=== PATIENT | female | born 1970 | race Hispanic/Latino ===

== ENCOUNTER 2017-02-21 12:03 | Inpatient (IN) | payer MEDICAID, OTHER ==
--- NOTE | 2017-02-21 12:52 | C.PDOC ---
History Of Present Illness 46 year old female presents to the ED via ambulance for psychiatric evaluation after she verbalized suicidal ideation with plan earlier today. Patient has history of methadone abuse and is currently getting help at [facility] rehab [facility]. Patient states her last use of Methadone was on on 02/02. Patient reports withdrawal symptoms such as a "crawling" sensation all over her skin. Patient notes she has been depressed and has not been eating/drinking properly for the past 7 days. She reports that she will hang herself with bed sheets if these symptoms continue. She denies homicidal ideation or any other substance abuse at this time. Time Seen by Provider: 02/21/17 12:36 Chief Complaint (Nursing): Psychiatric Evaluation History Per: Patient History/Exam Limitations: no limitations Onset/Duration Of Symptoms: Hrs, Days Current Symptoms Are (Timing): Still Present Suicide/Self Injury Attempted (Context): None Associated Symptoms: Depression, Suicidal Thoughts, Suicidal Plan Involuntary Hold By: None Recent travel outside of the [place]: No Additional History Per: Patient Past Medical History Reviewed: Historical Data, Nursing Documentation, Vital Signs Vital Signs: Last Vital Signs Temp 98.6 F 02/21/17 12:07 Pulse 92 H 02/21/17 12:07 Resp 16 02/21/17 12:07 BP 109/83 02/21/17 12:07 Pulse Ox 98 02/21/17 13:40 - Medical History PMH: Anxiety, Depression, HTN Surgical History: No Surg Hx Family History: States: Unknown Family Hx - Social History Hx Alcohol Use: No Hx Substance Use: No - Immunization History Hx Tetanus Toxoid Vaccination: No Hx Influenza Vaccination: No Hx Pneumococcal Vaccination: No Review Of Systems Psych: Positive for: Depression, Suicidal ideation (with plan ), Withdrawal Physical Exam - Physical Exam Appears: Non-toxic, No Acute Distress, Other (anxious ) Skin: Normal Color, Warm, Dry Head: Atraumatic, Normacephalic Eye(s): bilateral: Normal Inspection Oral Mucosa: Moist Neck: Supple Chest: Symmetrical, No Deformity, No Tenderness Cardiovascular: Rhythm Regular, No Murmur Respiratory: Normal Breath Sounds Extremity: Normal ROM, Capillary Refill (less than 2 seconds ) Neurological/Psych: Oriented x3, Normal Speech, Normal Cognition, Other (no active psychosis ) Gait: Steady ED Course And Treatment - Laboratory Results Result Diagrams: 02/21/17 13:02 02/21/17 13:02 O2 Sat by Pulse Oximetry: 98 (on RA) Pulse Ox Interpretation: Normal Progress Note: Bloodwork and urinalysis ordered and reviewed. Catapres PO and Xanax PO administered. Progress - Re-Evaluation Re-evaluation Note: 02/21/17 13:39 MED CLEAR FOR PSYCH EVAL. ASYMPT FOR UTI, RECOMMEND MED CONSULT PRN FOR EVAL ABN UA 02/21/17 13:40 CRISIS SANDIP NOTIFIED - Data Reviewed Data Reviewed: Lab, Old records Disposition Discussed With Dr.: Lupillo Bush Counseled Patient/Family Regarding: Studies Performed, Diagnosis - Disposition Disposition: HOSPITALIZED Disposition Time: 14:42 Condition: STABLE Forms: [employer] ([place]) - Clinical Impression Clinical Impression: Depression, major - Scribe Statement The provider has reviewed the documentation as recorded by the Scribe (Bekah Yo) Provider Attestation: All medical record entries made by the Scribe were at my direction and personally dictated by me. I have reviewed the chart and agree that the record accurately reflects my personal performance of the history, physical exam, medical decision making, and the department course for this patient. I have also personally directed, reviewed, and agree with the discharge instructions and disposition. Decision To Admit - Pt Status Changed To: Hospital Disposition Of: Inpatient - Admit Certification Admit to Inpatient:: After my assessment, the patient will require hospitalization for at least two midnights. This is because of the severity of symptoms shown, intensity of services needed, and/or the medical risk in this patient being treated as an outpatient. - InPatient: Physician Admission Certification: I certify that this patient requires 2 or more midnights of care for the following reason:: SEE NOTE - . Bed Request Type: Psychiatry Admitting Physician: Lupillo Bush Patient Diagnosis: Depression, major
[2017-02-21 13:11] LABS: BASO % 0.7 % (0.0-2.0); EOS # 0.1 K/uL (0.0-0.7); EOS % 1.4 % (0.0-4.0); HEMATOCRIT 40.2 % (34.0-47.0); LYMPH # 1.8 K/uL (1.0-4.3); LYMPH % 35.4 % (20.0-40.0); MEAN CELL VOLUME 87.7 fL (81.0-99.0); MEAN CORPUSCULAR HEMOGLOBIN 29.7 pg (27.0-31.0); MEAN CORPUSCULAR HGB CONC 33.8 g/dL (33.0-37.0); MONO # 0.4 K/uL (0.0-0.8); MONO % 7.7 % (0.0-10.0); NRBC % 0.1 % (0.0-2.0); RED CELL DISTRIBUTION WIDTH 12.8 % (11.5-14.5); WHITE BLOOD COUNT 5.2 K/uL (4.8-10.8)
[2017-02-21 13:13] LABS: CHLORIDE 105 mmol/L (98-107); SODIUM 138 mmol/L (132-148)
[2017-02-21 13:14] LABS: POTASSIUM 3.8 mmol/L (3.6-5.2)
[2017-02-21 13:16] LABS: ALB/GLOB RATIO 1.2 (1.0-2.1); ALKALINE PHOSPHATASE 59 U/L (38-126); ALT/SGPT 42 U/L (9-52); AST/SGOT 22 U/L (14-36); BILIRUBIN,TOTAL 0.5 mg/dL (0.2-1.3); BLOOD UREA NITROGEN 25 mg/dL (7-17); CARBON DIOXIDE 17 mmol/L (22-30); GFR AFRICAN-AMERICAN > 60; GLUCOSE,RANDOM 94 mg/dL (65-105); TOTAL PROTEIN 8.5 g/dL (6.3-8.3)
[2017-02-21 13:17] LABS: ALCOHOL SERUM < 10 mg/dl (0-10); CALCIUM 9.8 mg/dl (8.6-10.4)
[2017-02-21 13:29] LABS: RBC URINE 2 /hpf (0-3); URINE BACTERIA MOD (<OCC); URINE BILIRUBIN NEGATIVE (NEGATIVE); URINE BLOOD 1+ (NEGATIVE); URINE COLOR Yellow (YELLOW); URINE GLUCOSE (UA) NORMAL (Normal); URINE HYALINE CAST 0-2 /lpf (0-2); URINE KETONE TRACE mg/dL (NEGATIVE); URINE LEUKOCYTE ESTERASE 2+ Leu/uL (Negative); URINE PROTEIN 1+ mg/dL (NEGATIVE); URINE UROBILINOGEN NORMAL mg/dL (0.2-1.0); WBC URINE 30 /hpf (0-5)
--- NOTE | 2017-02-21 17:42 | PCM.BM ---
<Danielle Davenport - Last Filed: 02/21/17 17:41> Treatment Plan Problems - Problems identified on initial assessmt Depression Date Initiated: 02/21/17 Time Initiated: 17:41 Assessment reference: NA Status: Active Treatment assets and liabiliti Patient Assests: adapts well, cooperative, motivated, negotiates basic needs Patient Liabilities: substance abuse - Milieu Protocol Maintain good personal hygiene: daily Encourage regular showers, daily Remind patient to perform daily oral care Conduct patient checks and document Observation sheet: Q15 minutes Maintain personal safety: every shift Educate patient to report safety concerns to staff, every shift Monitor environment for contraband/sharps Medication safety: Monitor for expected outcome, potential side effects: every shift, Assess barriers to learning: every shift, Assess readiness for medication education: every shift <Holli Johns - Last Filed: 02/22/17 11:45> Family Contact Family involvement: Famliy/SO not involved - Outside Agency Agency 1 Care involvment: Following patient during stay, Information-sharing Agency contact name: [facility] Agency contact number: - Goals for Treatment Patient goals for treatment: "I want to go back to [facility]." Discharge/Continuing Care - Education Needs Education Needs: Patient Medication, Patient Coping Skills - Discharge Discharge Criteria: Tolerates medication w/o severe side effects, Reduction of target symptoms Discharge to:: Substance Abuse Rehab - Treatment Team Participation Discussed with Family/SO: No Was Patient/Family/SO present at Treatment Team Meeting: Yes <Lupillo Bush - Last Filed: 02/22/17 20:06> - Diagnosis (1) Major depressive disorder, recurrent severe without psychotic features Status: Acute Interventions: Assess/at just medications daily and/or as needed See patient on and individual [id number] per week to assess status of hallucinations and delusions Discussed risks, benefits, side effects and alternatives of medications. 02/22/17 20:05 (2) Long-term current use of methadone for opiate dependence Status: Acute Interventions: Assess 7x/week regarding severity of withdrawals. Educated regarding risks, benefits, side effects and alternatives of medications. Use motivational interviewing for abstinence. Use CBT for relapse prevention Medication management for withdrawal symptoms Encouraged medications assisted treatment 02/22/17 20:04
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
--- NOTE | 2017-02-23 11:42 | PCM.PYCHPN ---
Psychiatric Progress Note - Psychiatric Progress Note Patient seen today, length of contact: 15 min Patient Chief Complaint: "I need seroquel" Problems Identified/Issues Discussed: The pt is seen, chart reviewed, case discussed with staff. The pt is compliant with medications and reports no side-effects. After care discussed, will return to [facility] support and psychoeducation given. She is insisting on getting her seroquel 400 g which helped her depression and insomnia She also says she is till very depressed Wellbutrin XL added Seroquel increased Risks discussed Medication Change: Yes (see hpi) Medical Record Reviewed: Yes Mental Status Examination - Cognitive Function Orientation: Person, Place, Situation, Time Memory: Intact Attention: WNL Concentration: Poor Association: WNL Fund of Knowledge: WNL - Mood Mood: Depressed - Affect Affect: Constricted, Depressed - Formal Thought Process Formal Thought Process: No Impairment - Suicidal Ideation Suicidal Ideation: No - Homicidal Ideation Homicidal Ideation: No Goal/Treatment Plan - Goal/Treatment Plan Need for Continued Stay: Discharge may exacerbated symptoms, Severe functional impairment Progress Toward Problem(s) and Goals/Treatment Plan: Continue medications Support and psychoeducation daily Attend groups and activities daily After care planning by KYLER to [facility] Estimated Date of D/C: 03/01/17
[2017-02-23] MEDS: buPROPion 150 mg/24 Hours XL Tab PO SCH (14:27)
[2017-02-24] MEDS: buPROPion 150 mg/24 Hours XL Tab PO SCH (09:27)
--- NOTE | 2017-02-24 12:56 | PCM.PYCHPN ---
Psychiatric Progress Note - Psychiatric Progress Note Patient seen today, length of contact: 16 min Patient Chief Complaint: "I am very anxious, real bad" Problems Identified/Issues Discussed: The pt is seen, chart reviewed, case discussed with staff. Support given, CBT and HI used briefly No new symptoms reported, improving slowly and needs more time No SEs from medications, risks discussed. After care discussed - she now says she doesn't want to go to [facility] "I don't like it there" Meds adjusted b/c of her anxiety Medication Change: Yes (inderal) Medical Record Reviewed: Yes Mental Status Examination - Cognitive Function Orientation: Person, Place, Situation, Time Memory: Intact Attention: WNL Concentration: Poor Association: WNL Fund of Knowledge: WNL - Mood Mood: Depressed - Affect Affect: Constricted, Depressed - Formal Thought Process Formal Thought Process: No Impairment - Suicidal Ideation Suicidal Ideation: No - Homicidal Ideation Homicidal Ideation: No Goal/Treatment Plan - Goal/Treatment Plan Need for Continued Stay: Discharge may exacerbated symptoms, Severe functional impairment Progress Toward Problem(s) and Goals/Treatment Plan: Continue medications Support and psychoeducation daily Attend groups and activities daily After care planning by KYLER STEPHEN Estimated Date of D/C: 03/01/17
[2017-02-25] MEDS: buPROPion 150 mg/24 Hours XL Tab PO SCH (09:30)
--- NOTE | 2017-02-25 14:12 | PCM.PYCHPN ---
Psychiatric Progress Note - Psychiatric Progress Note Patient seen today, length of contact: 15 minutes Patient Chief Complaint: I still feel anxiety. Problems Identified/Issues Discussed: Patient seen. Chart reviewed. Case discussed with the staff. Issues related to illness and treatment were discussed with the patient. Tolerating treatment very well. Reported compliant with treatment with no adverse affects. In the beginning patient reported that Risperdal helped her. Also reported that Seroquel didn't work. Seroquel was discontinued and patient was started on Risperdal. Over the weekend patient reported to treating psychiatrist that Seroquel worked. At this time she was on Seroquel and Risperdal. Complaining about anxiety which appear to be EPS. Will discontinue Risperdal, Will continue Seroquel and will add Cogentin 1 mg twice a day. At the time of evaluation, patient was awake alert oriented 3, had no delusions , no auditory or visual hallucinations, no suicidal ideations or homicidal ideations. Medical Problems: Hypertension Diagnostic Results: Reviewed DSM 5 Symptoms Update: Improving with treatment Medication Change: Yes (Discontinued Risperdal, started Cogentin) Medical Record Reviewed: Yes Mental Status Examination - Cognitive Function Orientation: Person, Place, Situation, Time Memory: Intact Attention: WNL Concentration: WNL Association: [facility] Fund of Knowledge: [facility] Decription of patient's judgement and insights: Fair - Mood Mood: Anxious - Affect Affect: Other (Inappropriate, appears fine.) - Speech Speech: Appropriate - Formal Thought Process Formal Thought Process: No Impairment - Suicidal Ideation Suicidal Ideation: No - Homicidal Ideation Homicidal Ideation: No Goal/Treatment Plan - Goal/Treatment Plan Need for Continued Stay: Remain at risks for inpatient hospitalization, Discharge may exacerbated symptoms, Severe functional impairment Progress Toward Problem(s) and Goals/Treatment Plan: Patient education Supportive therapy Will discontinue Risperdal, Will start Cogentin 1 mg twice a day. Continue rest of the treatment as before Estimated Date of D/C: 03/01/17 - Smoking Cessation Smoking Cessation Initiated: Yes
[2017-02-26] MEDS: buPROPion 150 mg/24 Hours XL Tab PO SCH (09:54)
--- NOTE | 2017-02-26 14:39 | PCM.PYCHPN ---
Psychiatric Progress Note - Psychiatric Progress Note Patient seen today, length of contact: 15 minutes Patient Chief Complaint: I still feel anxiety. I cannot sit still. Problems Identified/Issues Discussed: Patient seen. Chart reviewed. Case discussed with the staff. Issues related to illness and treatment were discussed with the patient. Tolerating treatment very well. Reported compliant with treatment with no adverse affects. Still patient reported having anxiety symptoms. Patient reported cannot sit still, some inner restlessness, wants to move all the time. These symptoms appear to be EPS. Education provided to patient. We will follow. At the time of evaluation, patient was awake alert oriented 3, had no delusions , no auditory or visual hallucinations, no suicidal ideations or homicidal ideations. Medical Problems: Hypertension Diagnostic Results: Reviewed DSM 5 Symptoms Update: Improving with treatment Medication Change: No Medical Record Reviewed: Yes Mental Status Examination - Cognitive Function Orientation: Person, Place, Situation, Time Memory: Intact Attention: WNL Concentration: WNL Association: WNL Fund of Knowledge: WN Decription of patient's judgement and insights: Fair - Mood Mood: Anxious - Affect Affect: Other (Inappropriate, appears fine.) - Speech Speech: Appropriate - Formal Thought Process Formal Thought Process: No Impairment Psychotic Thoughts and Behaviors: None - Suicidal Ideation Suicidal Ideation: No - Homicidal Ideation Homicidal Ideation: No Goal/Treatment Plan - Goal/Treatment Plan Need for Continued Stay: Remain at risks for inpatient hospitalization, Discharge may exacerbated symptoms, Severe functional impairment Progress Toward Problem(s) and Goals/Treatment Plan: Patient education Supportive therapy Continue treatment as before Estimated Date of D/C: 03/01/17 - Smoking Cessation Smoking Cessation Initiated: Yes
[2017-02-27] MEDS: buPROPion 150 mg/24 Hours XL Tab PO SCH (10:12)
--- NOTE | 2017-02-27 14:06 | PCM.PYCHPN ---
Psychiatric Progress Note - Psychiatric Progress Note Patient seen today, length of contact: 15 minutes Patient Chief Complaint: I still feel anxiety. I also have racing thoughts. Problems Identified/Issues Discussed: Patient seen. Chart reviewed. Case discussed with the staff. Issues related to illness and treatment were discussed with the patient. Tolerating treatment very well. Reported compliant with treatment with no adverse affects. Still patient reported having anxiety symptoms, but they are less than before. Also reported having racing thoughts. Reported that in the past she had lithium with good response. We will start lithium 300 mg twice a day. At the time of evaluation, patient was awake alert oriented 3, had no delusions , no auditory or visual hallucinations, no suicidal ideations or homicidal ideations. Medical Problems: Hypertension Diagnostic Results: Reviewed DSM 5 Symptoms Update: Improving with treatment Medication Change: Yes (Started lithium 300 mg twice a day) Medical Record Reviewed: Yes Mental Status Examination - Cognitive Function Orientation: Person, Place, Situation, Time Memory: Intact Attention: WNL Concentration: WNL Association: [facility] Fund of Knowledge: [facility] Decription of patient's judgement and insights: Fair - Mood Mood: Anxious (Less than before) - Affect Affect: Other (Inappropriate, appears fine.) - Speech Speech: Appropriate - Formal Thought Process Formal Thought Process: No Impairment Psychotic Thoughts and Behaviors: None - Suicidal Ideation Suicidal Ideation: No - Homicidal Ideation Homicidal Ideation: No Goal/Treatment Plan - Goal/Treatment Plan Need for Continued Stay: Remain at risks for inpatient hospitalization, Discharge may exacerbated symptoms, Severe functional impairment Progress Toward Problem(s) and Goals/Treatment Plan: Patient education Supportive therapy Will start lithium 300 mg twice a day Continue rest of the treatment as before Estimated Date of D/C: 03/01/17 - Smoking Cessation Smoking Cessation Initiated: Yes
[2017-02-28] MEDS: buPROPion 150 mg/24 Hours XL Tab PO SCH (10:17)
--- NOTE | 2017-02-28 14:41 | PCM.PYCHPN ---
Psychiatric Progress Note - Psychiatric Progress Note Patient seen today, length of contact: 15 minutes Patient Chief Complaint: I'm feeling better. Problems Identified/Issues Discussed: Patient seen. Chart reviewed. Case discussed with the staff. Issues related to illness and treatment were discussed with the patient. Tolerating treatment very well. Reported compliant with treatment with no adverse affects. Patient reported feeling much better after start of lithium. At the time of evaluation, patient was awake alert oriented 3, had no delusions , no auditory or visual hallucinations, no suicidal ideations or homicidal ideations. Medical Problems: Hypertension Diagnostic Results: Reviewed DSM 5 Symptoms Update: Improving with treatment Medication Change: No Medical Record Reviewed: Yes Mental Status Examination - Cognitive Function Orientation: Person, Place, Situation, Time Memory: Intact Attention: WNL Concentration: WNL Association: WNL Fund of Knowledge: [facility] Decription of patient's judgement and insights: Fair - Mood Mood: Anxious (Less than before) - Affect Affect: Other (Inappropriate, appears fine.) - Speech Speech: Appropriate - Formal Thought Process Formal Thought Process: No Impairment Psychotic Thoughts and Behaviors: None - Suicidal Ideation Suicidal Ideation: No - Homicidal Ideation Homicidal Ideation: No Goal/Treatment Plan - Goal/Treatment Plan Need for Continued Stay: Remain at risks for inpatient hospitalization, Discharge may exacerbated symptoms, Severe functional impairment Progress Toward Problem(s) and Goals/Treatment Plan: Patient education Supportive therapy Continue treatment as before Estimated Date of D/C: 03/04/17 - Smoking Cessation Smoking Cessation Initiated: Yes
--- NOTE | 2017-03-01 09:40 | PCM.BM ---
<Holli Johns - Last Filed: 03/01/17 09:37> Treatment Plan Problems - Problems identified on initial assessmt Depression Date Initiated: 02/21/17 Time Initiated: 17:41 Assessment reference: NA Status: Active Treatment assets and liabiliti Patient Assests: adapts well, cooperative, motivated, negotiates basic needs Patient Liabilities: substance abuse - Milieu Protocol Maintain good personal hygiene: daily Encourage regular showers, daily Remind patient to perform daily oral care Conduct patient checks and document Observation sheet: Q15 minutes Maintain personal safety: every shift Educate patient to report safety concerns to staff, every shift Monitor environment for contraband/sharps Medication safety: Monitor for expected outcome, potential side effects: every shift, Assess barriers to learning: every shift, Assess readiness for medication education: every shift Milieu Narrative: Patient education Supportive therapy Continue treatment as before Family Contact Family involvement: Famliy/SO not involved - Outside Agency Agency 1 Care involvment: Following patient during stay, Information-sharing Agency contact name: [facility] re[facility] Agency contact number: - Goals for Treatment Patient goals for treatment: "I want to go back to [facility] Discharge/Continuing Care - Education Needs Education Needs: Patient Medication, Patient Coping Skills - Discharge Discharge Criteria: Tolerates medication w/o severe side effects, Reduction of target symptoms Discharge to:: Substance Abuse Rehab - Treatment Team Participation Patient/Family/SO Statement: Patient education Supportive therapy Continue treatment as before Discussed with Family/SO: No Was Patient/Family/SO present at Treatment Team Meeting: Yes Treatment Plan Review Patient participation: Yes Family/SO/Caregiver participation: No - Problem Depression Time Initiated: 17:41 <Lupillo Bush M - Last Filed: 03/01/17 12:35> - Diagnosis (1) Major depressive disorder, recurrent severe without psychotic features Status: Acute Interventions: Assess/at just medications daily and/or as needed See patient on and individual [id number] per week to assess status of hallucinations and delusions Discussed risks, benefits, side effects and alternatives of medications. 03/01/17 12:34 (2) Long-term current use of methadone for opiate dependence Status: Acute Interventions: Assess 7x/week regarding severity of withdrawals. Educated regarding risks, benefits, side effects and alternatives of medications. Use motivational interviewing for abstinence. Use CBT for relapse prevention Medication management for withdrawal symptoms Encouraged medications assisted treatment 03/01/17 12:35 <Ryanne Cordero - Last Filed: 03/01/17 14:05> Treatment Plan Review - Problem Depression Date Initiated: 03/01/17 Time Initiated: 14:05 Progress toward outcomes: improved - Discharge / Continuing Care Discharge to:: Substance Abuse Rehab Health Needs: Follow up care/test, Medications/Rx
[2017-03-01] MEDS: buPROPion 150 mg/24 Hours XL Tab PO SCH (09:53)
--- NOTE | 2017-03-01 12:37 | PCM.PYCHPN ---
Psychiatric Progress Note - Psychiatric Progress Note Patient seen today, length of contact: 15 minutes Patient Chief Complaint: I'm feeling much better. Problems Identified/Issues Discussed: Patient seen. Chart reviewed. Case discussed with the staff. Issues related to illness and treatment were discussed with the patient. Tolerating treatment very well. Reported compliant with treatment with no adverse affects. Patient reported feeling much better after start of lithium. Patient has less racing thoughts. At the time of evaluation, patient was awake alert oriented 3, had no delusions , no auditory or visual hallucinations, no suicidal ideations or homicidal ideations. Medical Problems: Hypertension Diagnostic Results: Reviewed DSM 5 Symptoms Update: improving with treatment Medication Change: No Medical Record Reviewed: Yes Mental Status Examination - Cognitive Function Orientation: Person, Place, Situation, Time Memory: Intact Attention: WNL Concentration: WNL Association: [facility] Fund of Knowledge: [facility] Decription of patient's judgement and insights: Fair - Mood Mood: Anxious (Less than before) - Affect Affect: Other (Inappropriate, appears fine.) - Speech Speech: Appropriate - Formal Thought Process Formal Thought Process: No Impairment Psychotic Thoughts and Behaviors: None - Suicidal Ideation Suicidal Ideation: No - Homicidal Ideation Homicidal Ideation: No Goal/Treatment Plan - Goal/Treatment Plan Need for Continued Stay: Remain at risks for inpatient hospitalization, Discharge may exacerbated symptoms, Severe functional impairment Progress Toward Problem(s) and Goals/Treatment Plan: Patient education Supportive therapy Continue treatment as before Estimated Date of D/C: 03/04/17 - Smoking Cessation Smoking Cessation Initiated: Yes
[2017-03-02] MEDS: buPROPion 150 mg/24 Hours XL Tab PO SCH (09:12)
--- NOTE | 2017-03-02 12:24 | PCM.PYCHPN ---
Psychiatric Progress Note - Psychiatric Progress Note Patient seen today, length of contact: 15 minutes Patient Chief Complaint: I'm feeling much better. Problems Identified/Issues Discussed: Patient seen. Chart reviewed. Case discussed with the staff. Issues related to illness and treatment were discussed with the patient. Tolerating treatment very well. Reported compliant with treatment with no adverse affects. Patient reported feeling much better after start of lithium. Patient has less racing thoughts. Better mood and sleep. At the time of evaluation, patient was awake alert oriented 3, had no delusions , no auditory or visual hallucinations, no suicidal ideations or homicidal ideations. Medical Problems: Hypertension Diagnostic Results: Reviewed DSM 5 Symptoms Update: Improving with treatment Medication Change: No Medical Record Reviewed: Yes Mental Status Examination - Cognitive Function Orientation: Person, Place, Situation, Time Memory: Intact Attention: WNL Concentration: WNL Association: [facility] Fund of Knowledge: [facility] Decription of patient's judgement and insights: Fair - Mood Mood: Anxious (Much less than before) - Affect Affect: Other (Appropriate) - Speech Speech: Appropriate - Formal Thought Process Formal Thought Process: No Impairment Psychotic Thoughts and Behaviors: None - Suicidal Ideation Suicidal Ideation: No - Homicidal Ideation Homicidal Ideation: No Goal/Treatment Plan - Goal/Treatment Plan Need for Continued Stay: Remain at risks for inpatient hospitalization, Discharge may exacerbated symptoms, Severe functional impairment Progress Toward Problem(s) and Goals/Treatment Plan: Patient education Supportive therapy Continue treatment as before Estimated Date of D/C: 03/04/17 - Smoking Cessation Smoking Cessation Initiated: Yes
[2017-03-03] MEDS: buPROPion 150 mg/24 Hours XL Tab PO SCH (09:23)
--- NOTE | 2017-03-03 11:14 | PCM.RRT ---
<Donnell Martinez - Last Filed: 03/03/17 12:33> BOX PACKER Nurses Assessment - Situation Date: 03/03/17 Time BOX PACKER was called: 10:48 BOX PACKER Responder Arrival Time:: 10:50 BOX PACKER Location:: [address] [place] [address] Room Number: Dining rm BOX PACKER Reason for Call: Change in Mental Status (full body shakes) BOX PACKER Called By: RN - IV IV Inserted during BOX PACKER?: No - Respiratory BOX PACKER Delivery Method: Nasal Cannula @L/min Oxygen Flow Rate: 3 Received Nebulizer Treatments: No Was the Patient Ventilated with Bag/Mask 100% O2?: No Secretions Suctioned?: No Was the Patient Intubated?: No Was the Patient Placed on a Ventilator?: No - Diagnostic Test Ordered EKG: Yes CT Scan: Yes - Stat Labs Ordered BOX PACKER Stat Labs Ordered: CBC, BMP (CMP), TROPONIN (ADEBAYO Panel) BOX PACKER Other Labs Ordered: Prolactin, lithium, magnesium, phosphorous levels CPR started during BOX PACKER?: No - Amy Coma Scale Coma Scale Eye Opening: Spontaneous Coma Scale Motor: Obeys Commands Movement Coma Scale Verbal: Oriented Coma Scale Total: 15 - Time BOX PACKER Ended Time BOX PACKER Ended: 11:05 - Vital Signs at end of BOX PACKER Vital Signs at end of BOX PACKER: 163/71 88 HR 98% O2 sat. on 3L NC BG 98 - Recommendations 5) BOX PACKER Level of Care Recommendations: Transfer to Telemetry Notifications: Attending Physician I.Reason for BOX PACKER - A) Acute Change in Patient: (Select all that apply): Staff member or family is worried about patient (full body shaking) - Neurological Status (Select all that apply): Alert, Responsive, Oriented, Verbal, Follows Commands - Respiratory Oxygen Delivery Method: Nasal Cannula @L/min (3) - Constitutional Appears: No Acute Distress - Head Head Exam: ATRAUMATIC, NORMOCEPHALIC - Eyes Eye Exam: EOMI, Normal appearance - Respiratory Exam Respiratory Exam: Clear to Ausculation Bilateral, NORMAL BREATHING PATTERN. absent: Rales, Rhonchi, Wheezes - Cardiovascular Exam Cardiovascular Exam: REGULAR RHYTHM, +S1, +S2 - GI/Abdominal Exam GI & Abdominal Exam: Soft, Normal Bowel Sounds. absent: Distended, Tenderness - Neurological Exam Neurological Exam: Alert, Awake, CN II-XII Intact, Oriented x3. absent: Motor Sensory Deficit - Extremities Exam Extremities Exam: absent: Calf Tenderness, Pedal Edema Plan - Assessment of Findings&Treatment Plan BOX PACKER called by nursing staff for this 46 year old female here for suicidal ideation. Per staff, patient experiencing full body shakes lasting about 8 seconds. Patient was sitting in a chair and did not harm herself physically while she was convulsing per staff. Patient lowered to the floor after the shaking stopped. At this point, the medical team arrived and assessed the patient. Patient was awake, alert, and oriented. Patient states that she does not have a past history of seizures. EKG, ADEBAYO, CBC, CMP, Mag, Phos, Prolactin, and [place] levels ordered. Head CT ordered. Will transfer patient to telemetry for further monitoring. Psychiatry attending was at the BOX PACKER and aware of transfer. <Darcy Lin - Last Filed: 03/03/17 20:45> Attending/Attestation - Attestation I have personally seen and examined this patient.: Yes I have fully participated in the care of the patient.: Yes I have reviewed all pertinent clinical information, including history, physical exam and plan: Yes Notes (Text): 03/03/17 20:44 Patient was seen and examined.Plan discussed with resident. Agree with the assessment and plan
[2017-03-03 11:45] LABS: BASO % 0.4 % (0.0-2.0); EOS # 0.2 K/uL (0.0-0.7); EOS % 3.3 % (0.0-4.0); HEMATOCRIT 37.8 % (34.0-47.0); LYMPH # 1.4 K/uL (1.0-4.3); LYMPH % 19.3 % (20.0-40.0); MEAN CORPUSCULAR HGB CONC 34.1 g/dL (33.0-37.0); MEAN PLATELET VOLUME 8.3 fL (7.2-11.7); MONO # 0.6 K/uL (0.0-0.8); MONO % 8.3 % (0.0-10.0); WHITE BLOOD COUNT 7.1 K/uL (4.8-10.8)
[2017-03-03 11:58] LABS: CHLORIDE 100 mmol/L (98-107); SODIUM 137 mmol/L (132-148)
[2017-03-03 11:59] LABS: POTASSIUM 4.2 mmol/L (3.6-5.2)
--- NOTE | 2017-03-03 12:00 | CT ---
PROCEDURE: CT HEAD WITHOUT CONTRAST. HISTORY: initial seizure COMPARISON: None available. TECHNIQUE: Axial computed tomography images were obtained through the head/brain without intravenous contrast. Radiation dose: Total exam DLP = 756.24 mGy-cm. This CT exam was performed using one or more of the following dose reduction techniques: Automated exposure control, adjustment of the mA and/or kV according to patient size, and/or use of iterative reconstruction technique. FINDINGS: HEMORRHAGE: No intracranial hemorrhage. BRAIN: No mass effect or edema. No atrophy or chronic microvascular ischemic changes. VENTRICLES: Unremarkable. No hydrocephalus. CALVARIUM: Unremarkable. PARANASAL SINUSES: Unremarkable as visualized. No significant inflammatory changes. MASTOID AIR CELLS: Unremarkable as visualized. No inflammatory changes. OTHER FINDINGS: None. IMPRESSION: No evidence of acute intracranial hemorrhage territorial infarct mass effect or midline shift.
[2017-03-03 12:01] LABS: ALB/GLOB RATIO 1.2 (1.0-2.1); ALKALINE PHOSPHATASE 47 U/L (38-126); AST/SGOT 19 U/L (14-36); BILIRUBIN,TOTAL 0.5 mg/dL (0.2-1.3); BLOOD UREA NITROGEN 23 mg/dL (7-17); CARBON DIOXIDE 25 mmol/L (22-30); GFR AFRICAN-AMERICAN > 60; GLUCOSE,RANDOM 88 mg/dL (65-105); PHOSPHOROUS 3.8 mg/dL (2.5-4.5); TOTAL PROTEIN 8.4 g/dL (6.3-8.3)
[2017-03-03 12:02] LABS: ALT/SGPT 32 U/L (9-52); MAGNESIUM 2.1 mg/dL (1.6-2.3)
--- NOTE | 2017-03-03 12:40 | CP.PCM.CON ---
<Donnell Martinez - Last Filed: 03/03/17 20:21> History of Present Illness - History of Present Illness History of Present Illness: PGY-1 Medicine Consult Note for Dr. 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 Patient initially came to the hospital for suicidal ideation. During this time, patient experienced full body shaking per nursing staff. Per staff, patient did not fall or hurt herself and was simply sitting in a chair in the dining room of [facility]. After the patient stopped shaking, staff lowered her to the floor and medical team arrived. Patient is unaware of what happened and stated that she was sitting in a chair. Patient states that the next thing she knew, she was on the floor. Patient complaining of blurred vision and some dizziness. Patient also complaining of urinary frequency and pressure with urination. Patient initially had dysuria but has resolved since admission. At this time, patient denies suicidal or homicidal ideation, hallucinations. Patient does complain of anxiety for which she usually takes benzodiazepines at home. Patient denies a history of seizure disorder but stated that she had one in 1997 when she stopped taking her Wellbutrin. PMHx: HTN, Depression, Anxiety PSHx: x2, Lumbar spine surgery Allergies: NKDA Social: Smokes 1 ppd for 20 years. Denies alcohol, drugs. Lives with a friend. Per review of EMR, patient does have a history of opiate abuse and was previously on methadone which she had not taken for some time prior to this admission. Review of Systems - Constitutional Constitutional: absent: Chills, Fever - EENT Eyes: Blurred Vision Ears: absent: Decreased Hearing Nose/Mouth/Throat: absent: Nasal Congestion - Cardiovascular Cardiovascular: absent: Chest Pain, Leg Edema, Palpitations - Respiratory Respiratory: absent: Dyspnea - Gastrointestinal Gastrointestinal: absent: Abdominal Pain, Constipation, Diarrhea, Nausea, Vomiting - Genitourinary Genitourinary: Other (urinary frequency and suprapubic pressure with urination) . absent: Dysuria - Musculoskeletal Musculoskeletal: absent: Back Pain - Integumentary Integumentary: absent: Rash - Neurological Neurological: Dizziness. absent: Numbness, Headaches, Tingling, Weakness - Psychiatric Psychiatric: Abnormal Sleep Pattern, Anxiety, Depression. absent: Hallucinations, Homicidal Ideation, Suicidal Ideation, Visual Hallucinations, Tactile Hallucinations - Endocrine Endocrine: absent: Fatigue, Palpitations Past Patient History - Past Social History Smoking Status: Light Smoker < 10 Cigarettes Daily - CARDIAC Hx Hypertension: Yes - PULMONARY Hx Tuberculosis: No - NEUROLOGICAL HX Cerebrovascular Accident: No Hx Seizures: No - HEMATOLOGICAL/ONCOLOGICAL Hx Cancer: No Hx Human Immunodeficiency Virus (HIV): No - GENITOURINARY/GYNECOLOGICAL Hx Sexually Transmitted Disorders: No - PSYCHIATRIC Hx Substance Use: Yes - SURGICAL HISTORY Hx Section: Yes Hx Hysterectomy: Yes - ANESTHESIA Hx Anesthesia: Yes Hx Anesthesia Reactions: No Meds Allergies/Adverse Reactions: Allergies Allergy/AdvReac Type Severity Reaction Status Date / Time No Known Allergies Allergy Verified 02/21/17 12:10 - Medications Medications: Current Medications Amlodipine Besylate (Norvasc) 5 mg PO DAILY [facility] Last Admin: 03/03/17 09:23 Dose: 5 mg Benztropine Mesylate (Cogentin) 1 mg PO BID [facility] Last Admin: 03/03/17 09:23 Dose: 1 mg Bupropion HCl (Wellbutrin Xl) 300 mg PO DAILY [facility] Last Admin: 03/03/17 09:23 Dose: 300 mg Clonidine HCl (Catapres) 0.1 mg PO Q8 PRN PRN Reason: COWS Score More or Equal to 5 Fluoxetine HCl (Prozac) 60 mg PO QAM [facility] Last Admin: 03/03/17 09:15 Dose: 60 mg Gabapentin (Neurontin) 400 mg PO TID [facility] Last Admin: 03/03/17 09:23 Dose: 400 mg Hydroxyzine HCl (Atarax) 25 mg PO Q6 PRN PRN Reason: Anxiety Last Admin: 03/02/17 13:18 Dose: 25 mg Ibuprofen (Motrin Tab) 400 mg PO Q6 PRN PRN Reason: Pain, Mild (1-3) Last Admin: 03/02/17 09:41 Dose: 400 mg [place] Carbonate ([place] Carbonate 300mg) 300 mg PO BID [facility] Last Admin: 03/03/17 09:23 Dose: 300 mg Loperamide HCl (Imodium) 2 mg PO Q6H PRN PRN Reason: Diarrhea Last Admin: 02/23/17 10:26 Dose: 2 mg Nicotine (Nicoderm Cq) 1 patch TD DAILY [facility] Last Admin: 03/03/17 09:21 Dose: 1 patch Ondansetron HCl (Zofran Tab) 4 mg PO Q8 PRN PRN Reason: Nausea/Vomiting Propranolol HCl (Inderal) 20 mg PO Q8 [facility] Last Admin: 03/02/17 21:03 Dose: 20 mg Quetiapine Fumarate (Seroquel) 400 mg PO HS [facility] Last Admin: 03/02/17 21:03 Dose: 400 mg Physical Exam - Constitutional Appears: No Acute Distress - Head Exam Head Exam: ATRAUMATIC, NORMOCEPHALIC - Eye Exam Eye Exam: EOMI, Normal appearance Pupil Exam: Mydriatic. absent: PERRL - ENT Exam ENT Exam: Mucous Membranes Moist - Respiratory Exam Respiratory Exam: Clear to Auscultation Bilateral, NORMAL BREATHING PATTERN. absent: Rales, Rhonchi, Wheezes - Cardiovascular Exam Cardiovascular Exam: REGULAR RHYTHM, +S1, +S2. absent: Diastolic murmur, Systolic Murmur - GI/Abdominal Exam GI & Abdominal Exam: Normal Bowel Sounds, Soft. absent: Tenderness - Extremities Exam Extremities exam: Negative for: calf tenderness, pedal edema - Back Exam Back exam: CVA tenderness (R). absent: CVA tenderness (L) - Neurological Exam Neurological exam: Alert, CN II-XII Intact, Oriented x3 Additional comments: Muscle strength testing 5/5 bilateral upper and lower extremities. No pronator drift. Down-going plantar responses. Sensations intact bilateral upper and lower extremities. Results - Vital Signs Recent Vital Signs: Last Vital Signs Temp 97.9 F 03/03/17 09:25 Pulse 76 03/03/17 09:25 Resp 20 03/03/17 09:25 BP 113/79 03/03/17 09:25 Pulse Ox 99 02/25/17 07:21 - Labs Result Diagrams: 03/03/17 11:38 03/03/17 11:38 Labs: Laboratory Results - last 24 hr 03/03/17 03/03/17 03/03/17 11:38 11:38 11:38 WBC 7.1 RBC 4.29 Hgb 12.9 Hct 37.8 MCV 88.0 MCH 30.0 MCHC 34.1 RDW 13.0 Plt Count 293 MPV 8.3 Neut % (Auto) 68.7 Lymph % (Auto) 19.3 L [place] % (Auto) 8.3 Eos % (Auto) 3.3 Baso % (Auto) 0.4 Neut # 4.9 Lymph # 1.4 [place] # 0.6 Eos # 0.2 Baso # 0.0 Sodium 137 Potassium 4.2 Chloride 100 Carbon Dioxide 25 Anion Gap 16 BUN 23 H Creatinine 0.9 Est GFR ( Amer) > 60 Est GFR (Non-Af Amer) > 60 Random Glucose 88 Calcium 10.0 Phosphorus 3.8 Magnesium 2.1 Total Bilirubin 0.5 AST 19 ALT 32 Alkaline Phosphatase 47 Total Protein 8.4 H Albumin 4.6 Globulin 3.8 Albumin/Globulin Ratio 1.2 Prolactin 136.9 H [place] 0.9 Assessment & Plan - Assessment and Plan (Free Text) Plan: Possible Seizure CT head negative Prolactin elevated Neurology consult: Dr. Jimenez, help appreciated. Will f/u neuro recommendations. If stable and workup negative, can be transferred back to [facility]. Hypertension Norvasc 5 mg PO daily Anxiety/depression Management per psychiatry: * Cogentin 1 mg PO BID * Wellbutrin XL 300 mg PO daily--will hold for now * Clonidine 0.1 mg PO Q8H prn * Prozac 60 mg QAM * Neurontin 400 mg PO TID * Atarax 25 mg PO Q6 prn * [place] 300 mg PO BID * Imodium 2 mg PO Q6 prn * Nicotine patch * Zofran 4 mg PO Q8 prn * Inderal 20 mg PO Q8 * Seroquel 400 mg PO HS Case DW Dr. Delia Jacobo Bowiedileep PGY-1 <Darcy Lin - Last Filed: 03/03/17 21:01> Meds - Medications Medications: Current Medications Amlodipine Besylate (Norvasc) 5 mg PO DAILY [facility] Last Admin: 03/03/17 09:23 Dose: 5 mg Benztropine Mesylate (Cogentin) 1 mg PO BID [facility] Last Admin: 03/03/17 18:34 Dose: 1 mg Bupropion HCl (Wellbutrin Xl) 300 mg PO DAILY [facility] Last Admin: 03/03/17 09:23 Dose: 300 mg Clonidine HCl (Catapres) 0.1 mg PO Q8 PRN PRN Reason: COWS Score More or Equal to 5 Fluoxetine HCl (Prozac) 60 mg PO QAM [facility] Last Admin: 03/03/17 09:15 Dose: 60 mg Gabapentin (Neurontin) 400 mg PO TID [facility] Last Admin: 03/03/17 18:35 Dose: 400 mg Hydroxyzine HCl (Atarax) 25 mg PO Q6 PRN PRN Reason: Anxiety Last Admin: 03/02/17 13:18 Dose: 25 mg Ibuprofen (Motrin Tab) 400 mg PO Q6 PRN PRN Reason: Pain, Mild (1-3) Last Admin: 03/02/17 09:41 Dose: 400 mg [place] Carbonate ([place] Carbonate 300mg) 300 mg PO BID [facility] Last Admin: 03/03/17 18:35 Dose: 300 mg Loperamide HCl (Imodium) 2 mg PO Q6H PRN PRN Reason: Diarrhea Last Admin: 02/23/17 10:26 Dose: 2 mg Nicotine (Nicoderm Cq) 1 patch TD DAILY [facility] Last Admin: 03/03/17 09:21 Dose: 1 patch Ondansetron HCl (Zofran Tab) 4 mg PO Q8 PRN PRN Reason: Nausea/Vomiting Propranolol HCl (Inderal) 20 mg PO Q8 [facility] Last Admin: 03/03/17 16:06 Dose: Not Given Quetiapine Fumarate (Seroquel) 400 mg PO HS [facility] Last Admin: 03/02/17 21:03 Dose: 400 mg Results - Vital Signs Recent Vital Signs: Last Vital Signs Temp 97.9 F 03/03/17 15:43 Pulse 86 03/03/17 15:43 Resp 20 03/03/17 15:43 BP 121/82 03/03/17 15:43 Pulse Ox 95 03/03/17 15:43 - Labs Result Diagrams: 03/03/17 11:38 03/03/17 11:38 Labs: Laboratory Results - last 24 hr 03/03/17 03/03/17 03/03/17 11:38 11:38 11:38 WBC 7.1 RBC 4.29 Hgb 12.9 Hct 37.8 MCV 88.0 MCH 30.0 MCHC 34.1 RDW 13.0 Plt Count 293 MPV 8.3 Neut % (Auto) 68.7 Lymph % (Auto) 19.3 L [place] % (Auto) 8.3 Eos % (Auto) 3.3 Baso % (Auto) 0.4 Neut # 4.9 Lymph # 1.4 [place] # 0.6 Eos # 0.2 Baso # 0.0 Sodium 137 Potassium 4.2 Chloride 100 Carbon Dioxide 25 Anion Gap 16 BUN 23 H Creatinine 0.9 Est GFR ( Amer) > 60 Est GFR (Non-Af Amer) > 60 Random Glucose 88 Calcium 10.0 Phosphorus 3.8 Magnesium 2.1 Total Bilirubin 0.5 AST 19 ALT 32 Alkaline Phosphatase 47 Total Protein 8.4 H Albumin 4.6 Globulin 3.8 Albumin/Globulin Ratio 1.2 Prolactin 136.9 H [place] 0.9 Attending/Attestation - Attestation I have personally seen and examined this patient.: Yes I have fully participated in the care of the patient.: Yes I have reviewed all pertinent clinical information: Yes Notes (Text): Patient was seen and examined .Discussed with the resident.Agree with assessment and plan documented 1
--- NOTE | 2017-03-04 07:42 | CP.PCM.CON ---
History of Present Illness - History of Present Illness History of Present Illness: CONSULT DICTATED NEW ONSET OF SEIZURE OFFENDING AGENTS TO BE DISCONTINUED CHECK ELECTROLYTES SEIZURE PRECAUTION EEG AND MRI TREMOR FROM LITHIUM AND SSRI PROLACTIN IS HIGH MAY BE FROM SEIZURES MAY BE ATYPICAL NEUROLEPTICS FOLLOW PROLACTIN TODAY Past Patient History - Past Medical History & Family History Past Medical History?: Yes - Past Social History Smoking Status: Light Smoker < 10 Cigarettes Daily - CARDIAC Hx Hypertension: Yes - PULMONARY Hx Tuberculosis: No - NEUROLOGICAL HX Cerebrovascular Accident: No Hx Seizures: No - HEMATOLOGICAL/ONCOLOGICAL Hx Cancer: No Hx Human Immunodeficiency Virus (HIV): No - GENITOURINARY/GYNECOLOGICAL Hx Sexually Transmitted Disorders: No - PSYCHIATRIC Hx Substance Use: Yes - SURGICAL HISTORY Hx Section: Yes Hx Hysterectomy: Yes - ANESTHESIA Hx Anesthesia: Yes Hx Anesthesia Reactions: No Meds Allergies/Adverse Reactions: Allergies Allergy/AdvReac Type Severity Reaction Status Date / Time No Known Allergies Allergy Verified 02/21/17 12:10 - Medications Medications: Current Medications Amlodipine Besylate (Norvasc) 5 mg PO DAILY [facility] Last Admin: 03/03/17 09:23 Dose: 5 mg Benztropine Mesylate (Cogentin) 1 mg PO BID [facility] Last Admin: 03/03/17 18:34 Dose: 1 mg Bupropion HCl (Wellbutrin Xl) 300 mg PO DAILY [facility] Last Admin: 03/03/17 09:23 Dose: 300 mg Clonidine HCl (Catapres) 0.1 mg PO Q8 PRN PRN Reason: COWS Score More or Equal to 5 Last Admin: 03/03/17 16:30 Dose: 0.1 mg Fluoxetine HCl (Prozac) 60 mg PO QAM [facility] Last Admin: 03/03/17 09:15 Dose: 60 mg Gabapentin (Neurontin) 400 mg PO TID [facility] Last Admin: 03/03/17 18:35 Dose: 400 mg Hydroxyzine HCl (Atarax) 25 mg PO Q6 PRN PRN Reason: Anxiety Last Admin: 03/02/17 13:18 Dose: 25 mg Ibuprofen (Motrin Tab) 400 mg PO Q6 PRN PRN Reason: Pain, Mild (1-3) Last Admin: 03/02/17 09:41 Dose: 400 mg [place] Carbonate ([place] Carbonate 300mg) 300 mg PO BID [facility] Last Admin: 03/03/17 18:35 Dose: 300 mg Loperamide HCl (Imodium) 2 mg PO Q6H PRN PRN Reason: Diarrhea Last Admin: 02/23/17 10:26 Dose: 2 mg Nicotine (Nicoderm Cq) 1 patch TD DAILY [facility] Last Admin: 03/03/17 09:21 Dose: 1 patch Ondansetron HCl (Zofran Tab) 4 mg PO Q8 PRN PRN Reason: Nausea/Vomiting Propranolol HCl (Inderal) 20 mg PO Q8 [facility] Last Admin: 03/04/17 05:19 Dose: Not Given Quetiapine Fumarate (Seroquel) 400 mg PO HS [facility] Last Admin: 03/03/17 22:54 Dose: 400 mg Results - Vital Signs Recent Vital Signs: Last Vital Signs Temp 98 F 03/03/17 23:35 Pulse 63 03/04/17 04:18 Resp 20 03/03/17 23:35 BP 98/63 L 03/04/17 05:19 Pulse Ox 96 03/03/17 23:35 - Labs Result Diagrams: 03/03/17 11:38 03/03/17 11:38 Labs: Laboratory Results - last 24 hr 03/03/17 03/03/17 03/03/17 10:53 11:38 11:38 WBC RBC Hgb Hct MCV MCH MCHC RDW Plt Count MPV Neut % (Auto) Lymph % (Auto) [place] % (Auto) Eos % (Auto) Baso % (Auto) Neut # Lymph # [place] # Eos # Baso # Sodium 137 Potassium 4.2 Chloride 100 Carbon Dioxide 25 Anion Gap 16 BUN 23 H Creatinine 0.9 Est GFR ( Amer) > 60 Est GFR (Non-Af Amer) > 60 POC Glucose (mg/dL) 98 Random Glucose 88 Calcium 10.0 Phosphorus 3.8 Magnesium 2.1 Total Bilirubin 0.5 AST 19 ALT 32 Alkaline Phosphatase 47 Total Protein 8.4 H Albumin 4.6 Globulin 3.8 Albumin/Globulin Ratio 1.2 Prolactin 136.9 H [place] 0.9 03/03/17 11:38 WBC 7.1 RBC 4.29 Hgb 12.9 Hct 37.8 MCV 88.0 MCH 30.0 MCHC 34.1 RDW 13.0 Plt Count 293 MPV 8.3 Neut % (Auto) 68.7 Lymph % (Auto) 19.3 L [place] % (Auto) 8.3 Eos % (Auto) 3.3 Baso % (Auto) 0.4 Neut # 4.9 Lymph # 1.4 [place] # 0.6 Eos # 0.2 Baso # 0.0 Sodium Potassium Chloride Carbon Dioxide Anion Gap BUN Creatinine Est GFR ( Amer) Est GFR (Non-Af Amer) POC Glucose (mg/dL) Random Glucose Calcium Phosphorus Magnesium Total Bilirubin AST ALT Alkaline Phosphatase Total Protein Albumin Globulin Albumin/Globulin Ratio Prolactin [place]
--- NOTE | 2017-03-04 07:47 | CP.PCM.PN ---
Subjective - Date & Time of Evaluation Date of Evaluation: 03/04/17 Time of Evaluation: 09:00 - Subjective Subjective: PGY-[address] Campo Patient seen and examined at bedside. Patient reports no acute events overnight. Patient denies fever, chills, chest pain, dyspnea, abdominal pain, dysuria. Patient complaining of tremors. Objective - Vital Signs/Intake and Output Vital Signs (last 24 hours): Temp Pulse Resp BP Pulse Ox 98 F 63 20 98/63 L 96 03/03/17 23:35 03/04/17 04:18 03/03/17 23:35 03/04/17 05:19 03/03/17 23:35 - Medications Medications: Current Medications Amlodipine Besylate (Norvasc) 5 mg PO DAILY [facility] Last Admin: 03/03/17 09:23 Dose: 5 mg Benztropine Mesylate (Cogentin) 1 mg PO BID [facility] Last Admin: 03/03/17 18:34 Dose: 1 mg Bupropion HCl (Wellbutrin Xl) 300 mg PO DAILY [facility] Last Admin: 03/03/17 09:23 Dose: 300 mg Clonidine HCl (Catapres) 0.1 mg PO Q8 PRN PRN Reason: COWS Score More or Equal to 5 Last Admin: 03/03/17 16:30 Dose: 0.1 mg Fluoxetine HCl (Prozac) 60 mg PO QAM [facility] Last Admin: 03/03/17 09:15 Dose: 60 mg Gabapentin (Neurontin) 400 mg PO TID [facility] Last Admin: 03/03/17 18:35 Dose: 400 mg Hydroxyzine HCl (Atarax) 25 mg PO Q6 PRN PRN Reason: Anxiety Last Admin: 03/02/17 13:18 Dose: 25 mg Ibuprofen (Motrin Tab) 400 mg PO Q6 PRN PRN Reason: Pain, Mild (1-3) Last Admin: 03/02/17 09:41 Dose: 400 mg [place] Carbonate ([place] Carbonate 300mg) 300 mg PO BID [facility] Last Admin: 03/03/17 18:35 Dose: 300 mg Loperamide HCl (Imodium) 2 mg PO Q6H PRN PRN Reason: Diarrhea Last Admin: 02/23/17 10:26 Dose: 2 mg Nicotine (Nicoderm Cq) 1 patch TD DAILY [facility] Last Admin: 03/03/17 09:21 Dose: 1 patch Ondansetron HCl (Zofran Tab) 4 mg PO Q8 PRN PRN Reason: Nausea/Vomiting Propranolol HCl (Inderal) 20 mg PO Q8 [facility] Last Admin: 03/04/17 05:19 Dose: Not Given Quetiapine Fumarate (Seroquel) 400 mg PO HS [facility] Last Admin: 03/03/17 22:54 Dose: 400 mg - Labs Labs: 03/03/17 11:38 03/03/17 11:38 - Constitutional Appears: No Acute Distress - Head Exam Head Exam: ATRAUMATIC, NORMOCEPHALIC - Eye Exam Eye Exam: EOMI, Normal appearance - ENT Exam ENT Exam: Mucous Membranes Moist - Respiratory Exam Respiratory Exam: Clear to Ausculation Bilateral. absent: Rales, Rhonchi, Wheezes - Cardiovascular Exam Cardiovascular Exam: REGULAR RHYTHM, +S1, +S2 - GI/Abdominal Exam GI & Abdominal Exam: Soft, Normal Bowel Sounds. absent: Tenderness - Back Exam Back Exam: CVA tenderness (R). absent: CVA tenderness (L) - Neurological Exam Neurological Exam: Alert, Awake, CN II-XII Intact, Oriented x3 - Psychiatric Exam Psychiatric exam: Normal Affect, Normal Mood - Skin Skin Exam: Dry, Warm Assessment and Plan - Assessment and Plan (Free Text) Plan: Possible Seizure CT head negative Prolactin elevated Neurology consult: Dr. Jimenez, help appreciated. MRI negative for obvious encephalomalacia which can precipitate seizures but due to suspected region on left temporal horn near hippocampus, Dr. Jimenez advised loading of Keppra 1000 mg IV and then can begin on Keppra 500 mg PO BID. Per Dr. Jimenez and primary team, patient may be transferred back to [facility]. Dr. Jimenez recommends getting rid of medications which can precipitate seizures including the Wellbutrin and the Kite. This was discussed with psychiatry attending Dr. Siddiqui who accepts the patient back for transfer to [facility]. Prolactin level downtrending Hypertension Norvasc 5 mg PO daily--Changed to 2.5 mg PO starting tomorrow to avoid hypotension. Anxiety/depression Management per psychiatry: * Cogentin 1 mg PO BID * Wellbutrin XL 300 mg PO daily--will hold for now * Clonidine 0.1 mg PO Q8H prn * Prozac 60 mg QAM * Neurontin 400 mg PO TID * Atarax 25 mg PO Q6 prn * Kite 300 mg PO BID--Taper off * Imodium 2 mg PO Q6 prn * Nicotine patch * Zofran 4 mg PO Q8 prn * Inderal 20 mg PO Q8 * Seroquel 400 mg PO HS Patient requesting to stay on the telemetry unit for one more night. Case DW Dr. Jahaira Martinez PGY-1
[2017-03-04 08:03] LABS: BASO % 0.6 % (0.0-2.0); EOS # 0.2 K/uL (0.0-0.7); EOS % 3.8 % (0.0-4.0); LYMPH # 1.7 K/uL (1.0-4.3); LYMPH % 29.8 % (20.0-40.0); MEAN CELL VOLUME 89.1 fL (81.0-99.0); MEAN CORPUSCULAR HGB CONC 33.6 g/dL (33.0-37.0); MONO # 0.6 K/uL (0.0-0.8); MONO % 10.7 % (0.0-10.0); RED CELL DISTRIBUTION WIDTH 13.3 % (11.5-14.5); WHITE BLOOD COUNT 5.7 K/uL (4.8-10.8)
[2017-03-04 08:12] LABS: POTASSIUM 4.3 mmol/L (3.6-5.2)
[2017-03-04 08:14] LABS: ALB/GLOB RATIO 1.2 (1.0-2.1); BILIRUBIN,TOTAL 0.5 mg/dL (0.2-1.3); TOTAL PROTEIN 7.8 g/dL (6.3-8.3)
[2017-03-04 08:15] LABS: CALCIUM 9.9 mg/dl (8.6-10.4); MAGNESIUM 2.2 mg/dL (1.6-2.3); PHOSPHOROUS 4.5 mg/dL (2.5-4.5)
[2017-03-04] MEDS ORDERED: Gadodiamide 287 MG/ML VIAL (15ML) IV ONE (10:49)
--- NOTE | 2017-03-04 11:51 | MRI ---
PROCEDURE: MRI BRAIN WITH AND WITHOUT CONTRAST HISTORY: mass - ?mesial temp sclerosis COMPARISON: None. TECHNIQUE: Multiplanar, multisequence MR images of the brain were obtained with and without intravenous contrast enhancement (Omniscan 11 cc intravenously). FINDINGS: HEMORRHAGE: None DWI: No evidence of an acute or early subacute infarction. BRAIN PARENCHYMA: Intrinsic signal throughout the michaels and white matter structures above below the tentorium includes appears within normal limits including the brainstem. No signal abnormality is appreciate the medial bilateral temporal lobes, however, there is asymmetry in the temporal horns, with the left mormon more appearing more dilated when compared to the right (best seen on the coronal high-resolution T2 sequences through the temporal lobes) suspicious for atrophy waking which can be seen in mesial temporal sclerosis. There is no mass effect, parenchymal edema or loss of the corticomedullary differentiation. Midline brain anatomy appears within normal limits including the corpus callosum, brainstem and craniocervical junction. There is no suspicious extra-axial fluid collection identified. No abnormal intracranial enhancement. ENHANCEMENT: No abnormal intracranial enhancement. VENTRICLES: Unremarkable. No hydrocephalus. CRANIUM: Unremarkable. ORBITS: Grossly unremarkable. PARANASAL SINUSES/MASTOIDS: Clear VASCULAR SYSTEM: Skull base flow voids intact. OTHER FINDINGS: None . IMPRESSION: While there is no suspicious enhancement or acute finding throughout the exam, asymmetry in the temporal horns with the left more appearing somewhat more dilated focally, at the level of the hippocampus, suspicious for but not definitive of mesial temporal sclerosis. No definite enhancing intracranial mass identified. Examination is otherwise unremarkable.
--- NOTE | 2017-03-04 13:03 | CON ---
DATE: REASON FOR CONSULTATION: New onset of seizures. CHIEF COMPLAINT: The patient was brought into [facility] with history of suicidal ideation, being admitted in psychiatric observation. Yesterday, the patient did have witnessed tonic-clonic activity while she was in the kitchen. The patient was transferred to telemetry for further evaluation. HISTORY OF PRESENT ILLNESS: Ms. Mariam Mckeon is a 46-year-old right-handed female in her usual state of health, admitted in [facility] with history of suicidal ideation. During the hospitalization, the patient did have witnessed seizure activities being presented as well as seen by the nurses in the kitchen. She claims that while she was in the kitchen, some bright light popped up in the peripheral field of the vision, next thing she released that people were around her, not associating with bowel or bladder incontinence. No history of bitten tongue been witnessed. She felt confused, following this no focal weakness. No similar episodes happened in the past. The patient states that she was recently started on Wellbutrin. There is a documentation also stated that she was having seizure in 1997 when she stopped Wellbutrin. PAST MEDICAL HISTORY: Hypertension, depression, and anxiety. PAST SURGICAL HISTORY: section in the past and lumbar spinal surgeries in the past. ALLERGIES: NO KNOWN ALLERGIES. SOCIAL HISTORY: Smokes more than a pack a day for more than 20 years. No history of alcohol use. No history of opiate abuse and previously was on methadone. REVIEW OF SYSTEMS: A 16-point systems has been reviewed. From neuro, new onset of seizures. PHYSICAL EXAMINATION: VITAL SIGNS: Blood pressure 98/63, mean arterial pressure of 74, respiratory rate 18, and temperature afebrile. NECK: Supple. No carotid bruits. HEART: Heart sounds are regular. CHEST: Fair air entry. EXTREMITIES: No edema in the legs. NEUROLOGIC EXAMINATION: Mental status examination: She is awake,alert, and oriented to person, place and time. She has significant retrograde amnesia from the seizures. naming, repetition, fluency, and comprehension all within normal. No signs of suicidal ideation. No signs of hallucination. No sign of depression at present. Cranial nerve examination: Visual field intact. Pupils react to light. Extraocular movements are normal. No nystagmus. No facial sensory deficit. No facial asymmetry. Hearing is normal. Tongue is midline. Good gag. Motor examination: On outstretched hand with eyes closed, no drift noted. Power is symmetric on either side. Deep tendon reflexes: Biceps, brachialis, triceps 2+, both knees are traced and both ankles are absent. Plantars are downgoing. Sensory examination: Grossly intact. No cortical sensory loss. Coordination: [id number] test is intact. There is tremor in both upper extremities. On outstretched hand with eyes closed, mild dysmetria noted. The patient also stated that she had myoclonic jerk in the both lower extremities. WORKUP: CT of the head reported as well as reviewed by me, no acute pathology. EKG; normal sinus rhythm. Blood workup; WBC 7.1, hemoglobin 12.9, hematocrit 37.8, and platelets 293. Sodium 137, potassium 4.2, chloride 100, bicarbonate 25, BUN 23, creatinine 0.9, GFR more than 60, total protein , prolactin level 136.9, probably secondary to her neuroleptics. Urinalysis shows 1+ proteinuria, 1+ blood, 2+ esterase, and 30 WBCs with moderate bacteria. Urine toxicology screen showed lithium 0.9. CONCLUSION: 1. Ms. Mariam Mckeon has been presenting with a new witnessed seizure activities, which could be probably secondary to the offending agent of Wellbutrin. As per history, she was started a week before. However, other possible causes electrolyte imbalance and space occupying lesion or infectious or inflammatory raised process that should be ruled out. 2. The patient had a tremor this probably secondary to her again toxic pathology secondary to lithium and other SSRIs. Other focal causes should be ruled out from imaging studies. RECOMMENDATIONS: 1. At present, the patient is not suicidal; however, the patient should be observed one-to-one. 2. MRI of the brain is recommended to rule out any space occupying lesion. 3. Electroencephalogram, the patient should be kept on close observation and proper hydration. [place] levels should be checked. No antiepileptic drugs needed at present unless we find the focal cause for her seizures. The patient's condition has been discussed. The patient will be followed closely with you. Norris Jimenez MD
[2017-03-04] MEDS ORDERED: levETIRAcetam 1,000 MG in Sodium Chloride 0.9% 100 ML IVPB ONE (14:00)
--- NOTE | 2017-03-05 05:32 | CP.PCM.PN ---
<Carmenza Mandel EstelitaSasha - Last Filed: 03/05/17 05:21> Subjective - Date & Time of Evaluation Date of Evaluation: 03/04/17 Time of Evaluation: 23:35 - Subjective Subjective: Code Star was called at 11:32pm. Patient was found by nursing staff laying on the floor by patient's bed. As per nursing staff, it is believed that the patient got out of bed, laid down on the floor and fell asleep. Patient was given ativan earlier and her seroquel one hour prior to that. Patient's vitals were taken, BP 111/75, temp 97.7, O2sat 96% and HR88. Patient reports she did not hurt any part of her body when she fell. She is oriented x3 but is not answering properly to questions. Patient was examined at bedside, in no acute distress. Heart sounds normal, no murmurs, not tachycardic/bradycardic; lungs were CTA b/l; skin- no abrasions, ecchymosis; musculoskeletal- no pain or tenderness to palpation of her LE, back, UE; Eyes sluggish, PEERL. Patient was placed on fall precautions and 1:1 observation as she continuously tried getting out of bed. Patient's status likely secondary to medication. Objective - Vital Signs/Intake and Output Vital Signs (last 24 hours): Temp Pulse Resp BP Pulse Ox 97.7 F 88 12 111/75 96 03/05/17 00:00 03/05/17 00:00 03/05/17 00:00 03/05/17 00:00 03/05/17 00:00 Intake and Output: 03/04/17 03/05/17 18:59 06:59 Intake Total 500 Balance 500 - Medications Medications: Current Medications Amlodipine Besylate (Norvasc) 2.5 mg PO DAILY [facility] Benztropine Mesylate (Cogentin) 1 mg PO BID [facility] Last Admin: 03/04/17 17:03 Dose: 1 mg Bupropion HCl (Wellbutrin Xl) 300 mg PO DAILY [facility] Last Admin: 03/03/17 09:23 Dose: 300 mg Clonidine HCl (Catapres) 0.1 mg PO Q8 PRN PRN Reason: COWS Score More or Equal to 5 Last Admin: 03/03/17 16:30 Dose: 0.1 mg Fluoxetine HCl (Prozac) 60 mg PO QAM [facility] Last Admin: 03/04/17 12:07 Dose: 60 mg Gabapentin (Neurontin) 400 mg PO TID [facility] Last Admin: 03/04/17 17:03 Dose: 400 mg Hydroxyzine HCl (Atarax) 25 mg PO Q6 PRN PRN Reason: Anxiety Last Admin: 03/04/17 17:03 Dose: 25 mg Ibuprofen (Motrin Tab) 400 mg PO Q6 PRN PRN Reason: Pain, Mild (1-3) Last Admin: 03/02/17 09:41 Dose: 400 mg Levetiracetam (Keppra) 500 mg PO Q12 [facility] Last Admin: 03/04/17 22:38 Dose: 500 mg [place] Carbonate ([place] Carbonate 300mg) 300 mg PO BID [facility] Last Admin: 03/04/17 17:03 Dose: 300 mg Loperamide HCl (Imodium) 2 mg PO Q6H PRN PRN Reason: Diarrhea Last Admin: 02/23/17 10:26 Dose: 2 mg Lorazepam (Ativan) 1 mg IVP Q4H PRN PRN Reason: seizures Last Admin: 03/04/17 23:12 Dose: 1 mg Nicotine (Nicoderm Cq) 1 patch TD DAILY [facility] Last Admin: 03/04/17 12:11 Dose: 1 patch Ondansetron HCl (Zofran Tab) 4 mg PO Q8 PRN PRN Reason: Nausea/Vomiting Propranolol HCl (Inderal) 20 mg PO Q8 [facility] Last Admin: 03/04/17 22:38 Dose: Not Given Quetiapine Fumarate (Seroquel) 400 mg PO HS [facility] Last Admin: 03/04/17 22:37 Dose: 400 mg - Labs Labs: 03/04/17 07:52 03/04/17 07:52 <Navid Knowles P - Last Filed: 03/05/17 07:26> Objective - Vital Signs/Intake and Output Vital Signs (last 24 hours): Temp Pulse Resp BP Pulse Ox 97.7 F 88 12 111/75 96 03/05/17 00:00 03/05/17 00:00 03/05/17 00:00 03/05/17 00:00 03/05/17 00:00 - Medications Medications: Current Medications Amlodipine Besylate (Norvasc) 2.5 mg PO DAILY [facility] Benztropine Mesylate (Cogentin) 1 mg PO BID [facility] Last Admin: 03/04/17 17:03 Dose: 1 mg Bupropion HCl (Wellbutrin Xl) 300 mg PO DAILY [facility] Last Admin: 03/03/17 09:23 Dose: 300 mg Clonidine HCl (Catapres) 0.1 mg PO Q8 PRN PRN Reason: COWS Score More or Equal to 5 Last Admin: 03/03/17 16:30 Dose: 0.1 mg Fluoxetine HCl (Prozac) 60 mg PO QAM [facility] Last Admin: 03/04/17 12:07 Dose: 60 mg Gabapentin (Neurontin) 400 mg PO TID [facility] Last Admin: 03/04/17 17:03 Dose: 400 mg Hydroxyzine HCl (Atarax) 25 mg PO Q6 PRN PRN Reason: Anxiety Last Admin: 03/04/17 17:03 Dose: 25 mg Ibuprofen (Motrin Tab) 400 mg PO Q6 PRN PRN Reason: Pain, Mild (1-3) Last Admin: 03/02/17 09:41 Dose: 400 mg Levetiracetam (Keppra) 500 mg PO Q12 [facility] Last Admin: 03/04/17 22:38 Dose: 500 mg [place] Carbonate ([place] Carbonate 300mg) 300 mg PO BID [facility] Last Admin: 03/04/17 17:03 Dose: 300 mg Loperamide HCl (Imodium) 2 mg PO Q6H PRN PRN Reason: Diarrhea Last Admin: 02/23/17 10:26 Dose: 2 mg Nicotine (Nicoderm Cq) 1 patch TD DAILY [facility] Last Admin: 03/04/17 12:11 Dose: 1 patch Ondansetron HCl (Zofran Tab) 4 mg PO Q8 PRN PRN Reason: Nausea/Vomiting Propranolol HCl (Inderal) 20 mg PO Q8 [facility] Last Admin: 03/05/17 06:03 Dose: Not Given Quetiapine Fumarate (Seroquel) 400 mg PO HS [facility] Last Admin: 03/04/17 22:37 Dose: 400 mg - Labs Labs: 03/04/17 07:52 03/04/17 07:52
--- NOTE | 2017-03-05 07:02 | CP.PCM.PN ---
<Donnell Martinez - Last Filed: 03/05/17 18:55> Subjective - Date & Time of Evaluation Date of Evaluation: 03/05/17 Time of Evaluation: 07:50 - Subjective Subjective: PGY-[address] Ronni Yo Patient seen and examined at bedside. Patient states that she feels better today compared to yesterday. Patient denies fever, chills, chest pain, dyspnea, abdominal pain, dysuria. Objective - Vital Signs/Intake and Output Vital Signs (last 24 hours): Temp Pulse Resp BP Pulse Ox 97.7 F 88 12 111/75 96 03/05/17 00:00 03/05/17 00:00 03/05/17 00:00 03/05/17 00:00 03/05/17 00:00 - Medications Medications: Current Medications Amlodipine Besylate (Norvasc) 2.5 mg PO DAILY [facility] Benztropine Mesylate (Cogentin) 1 mg PO BID [facility] Last Admin: 03/04/17 17:03 Dose: 1 mg Bupropion HCl (Wellbutrin Xl) 300 mg PO DAILY [facility] Last Admin: 03/03/17 09:23 Dose: 300 mg Clonidine HCl (Catapres) 0.1 mg PO Q8 PRN PRN Reason: COWS Score More or Equal to 5 Last Admin: 03/03/17 16:30 Dose: 0.1 mg Fluoxetine HCl (Prozac) 60 mg PO QAM [facility] Last Admin: 03/04/17 12:07 Dose: 60 mg Gabapentin (Neurontin) 400 mg PO TID [facility] Last Admin: 03/04/17 17:03 Dose: 400 mg Hydroxyzine HCl (Atarax) 25 mg PO Q6 PRN PRN Reason: Anxiety Last Admin: 03/04/17 17:03 Dose: 25 mg Ibuprofen (Motrin Tab) 400 mg PO Q6 PRN PRN Reason: Pain, Mild (1-3) Last Admin: 03/02/17 09:41 Dose: 400 mg Levetiracetam (Keppra) 500 mg PO Q12 [facility] Last Admin: 03/04/17 22:38 Dose: 500 mg [place] Carbonate ([place] Carbonate 300mg) 300 mg PO BID [facility] Last Admin: 03/04/17 17:03 Dose: 300 mg Loperamide HCl (Imodium) 2 mg PO Q6H PRN PRN Reason: Diarrhea Last Admin: 02/23/17 10:26 Dose: 2 mg Nicotine (Nicoderm Cq) 1 patch TD DAILY [facility] Last Admin: 03/04/17 12:11 Dose: 1 patch Ondansetron HCl (Zofran Tab) 4 mg PO Q8 PRN PRN Reason: Nausea/Vomiting Propranolol HCl (Inderal) 20 mg PO Q8 [facility] Last Admin: 03/05/17 06:03 Dose: Not Given Quetiapine Fumarate (Seroquel) 400 mg PO HS [facility] Last Admin: 03/04/17 22:37 Dose: 400 mg - Labs Labs: 03/04/17 07:52 03/04/17 07:52 - Constitutional Appears: No Acute Distress - Head Exam Head Exam: ATRAUMATIC, NORMOCEPHALIC - Eye Exam Eye Exam: EOMI, PERRL - ENT Exam ENT Exam: Mucous Membranes Moist - Respiratory Exam Respiratory Exam: Clear to Ausculation Bilateral. absent: Rales, Rhonchi, Wheezes - Cardiovascular Exam Cardiovascular Exam: REGULAR RHYTHM, +S1, +S2 - GI/Abdominal Exam GI & Abdominal Exam: Soft, Normal Bowel Sounds. absent: Tenderness - Extremities Exam Extremities Exam: absent: Calf Tenderness, Pedal Edema - Back Exam Back Exam: CVA tenderness (R). absent: CVA tenderness (L) - Neurological Exam Neurological Exam: Alert, Awake, Oriented x3 - Psychiatric Exam Psychiatric exam: Normal Affect, Normal Mood - Skin Skin Exam: Dry, Warm Assessment and Plan - Assessment and Plan (Free Text) Plan: Possible Seizure CT head negative Prolactin elevated Neurology consult: Dr. Jimenez, help appreciated. MRI negative for obvious encephalomalacia which can precipitate seizures but due to suspected region on left temporal horn near hippocampus, Dr. Jimenez advised loading of Keppra 1000 mg IV and then can begin on Keppra 500 mg PO BID. Per Dr. Jimenez and primary team, patient may be transferred back to [facility]. Dr. Jimenez recommends getting rid of medications which can precipitate seizures including the Wellbutrin and the [place]. This was discussed with psychiatry attending Dr. Siddiqui who accepts the patient back for transfer to [facility]. Prolactin level downtrending Hypertension Norvasc 5 mg PO daily--Changed to 2.5 mg PO starting today to avoid hypotension. Anxiety/depression Management per psychiatry: * Cogentin 1 mg PO BID * Wellbutrin XL 300 mg PO daily--will hold for now * Clonidine 0.1 mg PO Q8H prn * Prozac 60 mg QAM * Neurontin 400 mg PO TID * Atarax 25 mg PO Q6 prn * Berg[place] 300 mg PO BID--Dr. Jimenez recommended tapering off of [place], but per Dr. Siddiqui, it should not precipitate further seizures * Imodium 2 mg PO Q6 prn * Nicotine patch * Zofran 4 mg PO Q8 prn * Inderal 20 mg PO Q8 * Seroquel 400 mg PO HS Code Star Likely due to medication. Patient given IV Ativan overnight, the code was called at some point after that. Head CT negative for acute hemorrhage UTI Based on UA and urine cultures, patient had a UTI on admission. Treated with 5 day course of Cipro 500 mg PO BID. Ordered repeat Urine cultures Case DW Dr. Ronni Martinez PGY-1 <Ronni Yo J - Last Filed: 03/05/17 20:00> Objective - Vital Signs/Intake and Output Vital Signs (last 24 hours): Temp Pulse Resp BP Pulse Ox 98.5 F 110 H 19 114/78 93 L 03/05/17 07:00 03/05/17 16:11 03/05/17 16:11 03/05/17 16:11 03/05/17 07:00 Intake and Output: 03/05/17 03/06/17 18:59 06:59 Intake Total 720 Balance 720 - Medications Medications: Current Medications Amlodipine Besylate (Norvasc) 2.5 mg PO DAILY [facility] Last Admin: 03/05/17 11:06 Dose: 2.5 mg Benztropine Mesylate (Cogentin) 1 mg PO BID [facility] Last Admin: 03/05/17 17:35 Dose: 1 mg Bupropion HCl (Wellbutrin Xl) 300 mg PO DAILY [facility] Last Admin: 03/03/17 09:23 Dose: 300 mg Clonidine HCl (Catapres) 0.1 mg PO Q8 PRN PRN Reason: COWS Score More or Equal to 5 Last Admin: 03/03/17 16:30 Dose: 0.1 mg Fluoxetine HCl (Prozac) 60 mg PO QAM [facility] Last Admin: 03/05/17 11:06 Dose: 60 mg Gabapentin (Neurontin) 400 mg PO TID [facility] Last Admin: 03/05/17 17:35 Dose: 400 mg Hydroxyzine HCl (Atarax) 25 mg PO Q6 PRN PRN Reason: Anxiety Last Admin: 03/04/17 17:03 Dose: 25 mg Ibuprofen (Motrin Tab) 400 mg PO Q6 PRN PRN Reason: Pain, Mild (1-3) Last Admin: 03/02/17 09:41 Dose: 400 mg Levetiracetam (Keppra) 500 mg PO Q12 [facility] Last Admin: 03/05/17 11:06 Dose: 500 mg [place] Carbonate (Bergoo Carbonate 300mg) 300 mg PO BID [facility] Last Admin: 03/05/17 17:35 Dose: 300 mg Loperamide HCl (Imodium) 2 mg PO Q6H PRN PRN Reason: Diarrhea Last Admin: 02/23/17 10:26 Dose: 2 mg Lorazepam (Ativan) 1 mg PO Q6H PRN PRN Reason: Severe anxiety Last Admin: 03/05/17 15:50 Dose: 1 mg Nicotine (Nicoderm Cq) 1 patch TD DAILY [facility] Last Admin: 03/05/17 11:06 Dose: 1 patch Ondansetron HCl (Zofran Tab) 4 mg PO Q8 PRN PRN Reason: Nausea/Vomiting Propranolol HCl (Inderal) 20 mg PO Q8 [facility] Last Admin: 03/05/17 15:02 Dose: Not Given Quetiapine Fumarate (Seroquel) 400 mg PO HS [facility] Last Admin: 03/04/17 22:37 Dose: 400 mg - Labs Labs: 03/05/17 08:14 03/05/17 08:14 Attending/Attestation - Attestation I have personally seen and examined this patient.: Yes I have fully participated in the care of the patient.: Yes I have reviewed all pertinent clinical information, including history, physical exam and plan: Yes Notes (Text): 03/05/17 19:58 Patient was seen and examined at 6:30 PM. Exam, assessment and plan were gone over with the resident. Patient is refusing repeat Urine Culture. If she does not reconsider, then medicine team will sign off on 03/06/17 as she has already been treated for 5 days as mentioned above. Ronni Yo D.O.
[2017-03-05 07:48] VITALS: O2SAT 93
[2017-03-05 08:21] LABS: BASO % 0.6 % (0.0-2.0); EOS # 0.2 K/uL (0.0-0.7); EOS % 2.7 % (0.0-4.0); HEMATOCRIT 37.9 % (34.0-47.0); LYMPH # 1.6 K/uL (1.0-4.3); LYMPH % 28.3 % (20.0-40.0); MEAN CELL VOLUME 89.3 fL (81.0-99.0); MEAN CORPUSCULAR HEMOGLOBIN 29.8 pg (27.0-31.0); MEAN CORPUSCULAR HGB CONC 33.4 g/dL (33.0-37.0); MEAN PLATELET VOLUME 7.7 fL (7.2-11.7); MONO # 0.5 K/uL (0.0-0.8); MONO % 9.1 % (0.0-10.0); NRBC % 0.1 % (0.0-2.0); RED CELL DISTRIBUTION WIDTH 13.1 % (11.5-14.5); WHITE BLOOD COUNT 5.5 K/uL (4.8-10.8)
[2017-03-05 08:33] LABS: ALB/GLOB RATIO 1.5 (1.0-2.1); BILIRUBIN,TOTAL 0.7 mg/dL (0.2-1.3)
[2017-03-05 08:34] LABS: PHOSPHOROUS 4.3 mg/dL (2.5-4.5)
--- NOTE | 2017-03-05 09:24 | PN ---
DATE: 03/05/2017 NEUROLOGICAL PROBLEM: New onset of seizures. PHYSICAL EXAMINATION: VITAL SIGNS: Blood pressure of 111/75, mean arterial pressure of 87, respiratory rate of 16, temperature of 97.7, and pulse rate of 88. GENERAL: The patient had a fall from the bed with no recollection. She stated that she was trying to get out of the bed, she slipped. No witnessed seizure activities. Bowel and bladder incontinence noted at the scene. NEUROLOGIC: The patient on calling her first name. She moves all four extremities. No tremor noted. CURRENT MEDICATIONS: Including Ativan, Catapres, Cogentin, Imodium, Inderal, Keppra, lithium, Motrin, gabapentin, amlodipine, and bupropion. LABORATORY DATA: Her workup, MRI of the brain, which is not done same level, but it was read has asymmetric, compress on the left side. However, the position is not right, somewhat it is tilted. They give is well marked and nicely seen on the left side. I doubt she has hippocampal atrophy. ASSESSMENT AND PLAN: However new onset of seizure and documented hippocampal atrophy. At this point, I would like to keep to her on Keppra for time being until the workup is completed. If all the workup is negative, Keppra can be discontinued. However, she has been on polypharmacy, which related to her underlying secondary to side effect, which she has been having at present. When medically stable, the unwanted drugs should be tapered off and discontinued slowly. Keppra can be discontinued if all workup is negative. Her electroencephalogram is normal for her age. No paroxysmal activity or focal slowing noted. Norris Jimenez MD
--- NOTE | 2017-03-05 10:49 | CT ---
PROCEDURE: CT HEAD WITHOUT CONTRAST. HISTORY: Seizure. COMPARISON: CT scan dated 03/03/2017 and MRI dated 03/04/2017. TECHNIQUE: Axial computed tomography images were obtained through the head/brain without intravenous contrast. Radiation dose: Total exam DLP = 816 mGy-cm. This CT exam was performed using one or more of the following dose reduction techniques: Automated exposure control, adjustment of the mA and/or kV according to patient size, and/or use of iterative reconstruction technique. FINDINGS: HEMORRHAGE: No intracranial hemorrhage. BRAIN: No mass effect or edema. Small focal hypodensities seen within the bilateral basal ganglia which may represent prominent perivascular spaces versus small lacunar infarcts. VENTRICLES: Unremarkable. No hydrocephalus. CALVARIUM: Unremarkable. PARANASAL SINUSES: Unremarkable as visualized. No significant inflammatory changes. MASTOID AIR CELLS: Unremarkable as visualized. No inflammatory changes. OTHER FINDINGS: None. IMPRESSION: Small focal hypodensities seen within the bilateral basal ganglia which may represent prominent perivascular spaces versus small lacunar infarcts. No acute intracranial hemorrhage. If symptoms persists, consider further evaluation with MRI.
--- NOTE | 2017-03-05 18:45 | CARD ---
APPROVED REPORT EKG Measurement Heart [id number] <Conclusion> Normal sinus rhythm Normal ECG
--- NOTE | 2017-03-06 06:28 | CP.PCM.PN ---
Subjective - Date & Time of Evaluation Date of Evaluation: 03/06/17 Time of Evaluation: 09:10 - Subjective Subjective: Medicine progress note for Dr. Ronni Yo Patient seen and examined. Patient states that she is doing fine. Patient still experiencing urinary frequency and suprapubic pressure with urination but thinks that it is reduced. Patient denies fever, chills, chest pain, dyspnea, abdominal pain, dysuria. Objective - Vital Signs/Intake and Output Vital Signs (last 24 hours): Temp Pulse Resp BP Pulse Ox 98.5 F 110 H 19 114/78 93 L 03/05/17 07:00 03/05/17 16:11 03/05/17 16:11 03/05/17 16:11 03/05/17 07:00 Intake and Output: 03/05/17 03/06/17 18:59 06:59 Intake Total 720 Balance 720 - Medications Medications: Current Medications Amlodipine Besylate (Norvasc) 2.5 mg PO DAILY [facility] Last Admin: 03/05/17 11:06 Dose: 2.5 mg Benztropine Mesylate (Cogentin) 1 mg PO BID [facility] Last Admin: 03/05/17 17:35 Dose: 1 mg Bupropion HCl (Wellbutrin Xl) 300 mg PO DAILY [facility] Last Admin: 03/03/17 09:23 Dose: 300 mg Clonidine HCl (Catapres) 0.1 mg PO Q8 PRN PRN Reason: COWS Score More or Equal to 5 Last Admin: 03/03/17 16:30 Dose: 0.1 mg Fluoxetine HCl (Prozac) 60 mg PO QAM [facility] Last Admin: 03/05/17 11:06 Dose: 60 mg Gabapentin (Neurontin) 400 mg PO TID [facility] Last Admin: 03/05/17 17:35 Dose: 400 mg Hydroxyzine HCl (Atarax) 25 mg PO Q6 PRN PRN Reason: Anxiety Last Admin: 03/04/17 17:03 Dose: 25 mg Ibuprofen (Motrin Tab) 400 mg PO Q6 PRN PRN Reason: Pain, Mild (1-3) Last Admin: 03/02/17 09:41 Dose: 400 mg Levetiracetam (Keppra) 500 mg PO Q12 [facility] Last Admin: 03/05/17 21:51 Dose: 500 mg [place] Carbonate ([place] Carbonate 300mg) 300 mg PO BID [facility] Last Admin: 03/05/17 17:35 Dose: 300 mg Loperamide HCl (Imodium) 2 mg PO Q6H PRN PRN Reason: Diarrhea Last Admin: 02/23/17 10:26 Dose: 2 mg Lorazepam (Ativan) 1 mg PO Q6H PRN PRN Reason: Severe anxiety Last Admin: 03/05/17 15:50 Dose: 1 mg Nicotine (Nicoderm Cq) 1 patch TD DAILY [facility] Last Admin: 03/05/17 11:06 Dose: 1 patch Ondansetron HCl (Zofran Tab) 4 mg PO Q8 PRN PRN Reason: Nausea/Vomiting Propranolol HCl (Inderal) 20 mg PO Q8 [facility] Last Admin: 03/06/17 06:24 Dose: Not Given Quetiapine Fumarate (Seroquel) 400 mg PO HS [facility] Last Admin: 03/05/17 21:51 Dose: 400 mg - Labs Labs: 03/05/17 08:14 03/05/17 08:14 - Constitutional Appears: No Acute Distress - Head Exam Head Exam: ATRAUMATIC, NORMOCEPHALIC - Eye Exam Eye Exam: EOMI, PERRL - ENT Exam ENT Exam: Mucous Membranes Moist - Respiratory Exam Respiratory Exam: Clear to Ausculation Bilateral. absent: Rales, Rhonchi, Wheezes - Cardiovascular Exam Cardiovascular Exam: REGULAR RHYTHM, +S1, +S2 - GI/Abdominal Exam GI & Abdominal Exam: Soft, Normal Bowel Sounds. absent: Tenderness - Extremities Exam Extremities Exam: absent: Calf Tenderness, Pedal Edema - Back Exam Back Exam: CVA tenderness (R) (mild). absent: CVA tenderness (L) - Neurological Exam Neurological Exam: Alert, Awake, Oriented x3 - Skin Skin Exam: Dry, Warm Assessment and Plan - Assessment and Plan (Free Text) Plan: Possible Seizure CT head negative Prolactin elevated Neurology consult: Dr. Jimenez, help appreciated. MRI negative for obvious encephalomalacia which can precipitate seizures but due to suspected region on left temporal horn near hippocampus, Dr. Jimenez advised loading of Keppra 1000 mg IV and then can begin on Keppra 500 mg PO BID. Per Dr. Jimenez and primary team, patient may be transferred back to [facility]. Dr. Jimenez recommends getting rid of medications which can precipitate seizures including the Wellbutrin and the [place]. This was discussed with psychiatry attending Dr. Siddiqui who accepts the patient back for transfer to [facility]. Prolactin level downtrending Hypertension Norvasc 5 mg PO daily--Changed to 2.5 mg PO starting 03/04/17 to avoid hypotension. Anxiety/depression Management per psychiatry: * Cogentin 1 mg PO BID * Wellbutrin XL 300 mg PO daily--will hold for now * Clonidine 0.1 mg PO Q8H prn * Prozac 60 mg QAM * Neurontin 400 mg PO TID * Atarax 25 mg PO Q6 prn * [place] 300 mg PO BID--Dr. Jimenez recommended tapering off of [place], but per Dr. Siddiqui, it should not precipitate further seizures * Imodium 2 mg PO Q6 prn * Nicotine patch * Zofran 4 mg PO Q8 prn * Inderal 20 mg PO Q8 * Seroquel 400 mg PO HS Code Star Likely due to medication. Patient given IV Ativan overnight, the code was called at some point after that. Head CT negative for acute hemorrhage UTI Based on UA and urine cultures, patient had a UTI on admission. Treated with 5 day course of Cipro 500 mg PO BID. Will f/u repeat Urine cultures Case DW Dr. Chai Martinez PGY-1
--- NOTE | 2017-03-06 11:23 | PCM.PYCHPN ---
Psychiatric Progress Note - Psychiatric Progress Note Patient seen today, length of contact: 15 minutes Medication Change: No Medical Record Reviewed: Yes Mental Status Examination - Cognitive Function Orientation: Person, Place, Situation, Time Memory: Intact Attention: WNL Concentration: WNL Association: WNL Fund of Knowledge: WNL - Mood Mood: Anxious (Much less than before) - Affect Affect: Other (Appropriate) - Speech Speech: Appropriate - Formal Thought Process Formal Thought Process: No Impairment - Suicidal Ideation Suicidal Ideation: No - Homicidal Ideation Homicidal Ideation: No Goal/Treatment Plan - Goal/Treatment Plan Need for Continued Stay: Remain at risks for inpatient hospitalization, Discharge may exacerbated symptoms, Severe functional impairment Estimated Date of D/C: 03/04/17
--- NOTE | 2017-03-06 11:51 | EEG ---
DATE: 03/04/2017 This is a 16-channel electroencephalogram of awake adult. During the study, photic stimulation was performed. Hyperventilation was not performed. The resting electroencephalogram consists of 40-50 microvolt diffuse 5 to 6 Hz theta activities seen at parietal and occipital leads. Some movement as well as frontal muscle artifact contaminated with background rhythm. The photic stimulation did not evoke driving response noted at 2 to 20 Hz. At times high amplitude delta activity seen, which consistent with early drowsiness. IMPRESSION: This is an normal electroencephalogram of awake and drowsy adult. During the study, neither electroencephalographic paroxysmal activities nor focal slowing noted. Norris Jimenez MD
[2017-03-07 08:00] VITALS: RESP 20; TEMP 97.7
--- NOTE | 2017-03-07 10:49 | CP.PCM.PN ---
<Donnell Martinez - Last Filed: 03/07/17 17:16> Subjective - Date & Time of Evaluation Date of Evaluation: 03/07/17 Time of Evaluation: 09:00 - Subjective Subjective: PGY-1 Medicine Progress note for Dr. Ronni Yo Patient seen and examined at bedside. Patient states that she feels well today. Patient denies dysuria and suprapubic pressure with urination. Patient states that she still experiences the urinary frequency. Patient denies fever, chills, chest pain, dyspnea, abdominal pain. Objective - Vital Signs/Intake and Output Vital Signs (last 24 hours): Temp Pulse Resp BP Pulse Ox 97.7 F 71 20 128/89 93 L 03/07/17 07:58 03/07/17 07:58 03/07/17 07:58 03/07/17 07:58 03/05/17 07:00 - Medications Medications: Current Medications Amlodipine Besylate (Norvasc) 2.5 mg PO DAILY [facility] Last Admin: 03/07/17 10:13 Dose: 2.5 mg Benztropine Mesylate (Cogentin) 1 mg PO BID [facility] Last Admin: 03/07/17 10:14 Dose: 1 mg Bupropion HCl (Wellbutrin Xl) 300 mg PO DAILY [facility] Last Admin: 03/03/17 09:23 Dose: 300 mg Clonidine HCl (Catapres) 0.1 mg PO Q8 PRN PRN Reason: COWS Score More or Equal to 5 Last Admin: 03/03/17 16:30 Dose: 0.1 mg Fluoxetine HCl (Prozac) 60 mg PO QAM [facility] Last Admin: 03/07/17 10:13 Dose: 60 mg Gabapentin (Neurontin) 400 mg PO TID [facility] Last Admin: 03/07/17 10:13 Dose: 400 mg Hydroxyzine HCl (Atarax) 25 mg PO Q6 PRN PRN Reason: Anxiety Last Admin: 03/04/17 17:03 Dose: 25 mg Ibuprofen (Motrin Tab) 400 mg PO Q6 PRN PRN Reason: Pain, Mild (1-3) Last Admin: 03/02/17 09:41 Dose: 400 mg Levetiracetam (Keppra) 500 mg PO Q12 [facility] Last Admin: 03/07/17 10:14 Dose: 500 mg Nimmons Carbonate (Nimmons Carbonate 300mg) 300 mg PO BID [facility] Last Admin: 03/07/17 10:13 Dose: 300 mg Loperamide HCl (Imodium) 2 mg PO Q6H PRN PRN Reason: Diarrhea Last Admin: 02/23/17 10:26 Dose: 2 mg Lorazepam (Ativan) 1 mg PO BID [facility] Stop: 03/08/17 10:01 Nicotine (Nicoderm Cq) 1 patch TD DAILY [facility] Last Admin: 03/07/17 10:14 Dose: 1 patch Ondansetron HCl (Zofran Tab) 4 mg PO Q8 PRN PRN Reason: Nausea/Vomiting Propranolol HCl (Inderal) 20 mg PO Q8 [facility] Last Admin: 03/07/17 07:00 Dose: Not Given Quetiapine Fumarate (Seroquel) 400 mg PO HS [facility] Last Admin: 03/06/17 21:40 Dose: 400 mg - Labs Labs: 03/05/17 08:14 03/05/17 08:14 - Constitutional Appears: No Acute Distress - Head Exam Head Exam: ATRAUMATIC, NORMOCEPHALIC - Eye Exam Eye Exam: EOMI, PERRL - ENT Exam ENT Exam: Mucous Membranes Moist - Respiratory Exam Respiratory Exam: Clear to Ausculation Bilateral. absent: Rales, Rhonchi, Wheezes - Cardiovascular Exam Cardiovascular Exam: REGULAR RHYTHM, +S1, +S2 - GI/Abdominal Exam GI & Abdominal Exam: Soft, Normal Bowel Sounds. absent: Tenderness - Extremities Exam Extremities Exam: absent: Calf Tenderness, Pedal Edema - Back Exam Back Exam: CVA tenderness (R). absent: CVA tenderness (L) - Neurological Exam Neurological Exam: Alert, Awake, Oriented x3 - Psychiatric Exam Psychiatric exam: Normal Affect, Normal Mood - Skin Skin Exam: Dry, Warm Assessment and Plan - Assessment and Plan (Free Text) Plan: Possible Seizure CT head negative Prolactin elevated Neurology consult: Dr. Jimenez, help appreciated. MRI negative for obvious encephalomalacia which can precipitate seizures but due to suspected region on left temporal horn near hippocampus, Dr. Jimenez advised loading of Keppra 1000 mg IV and then can begin on Keppra 500 mg PO BID. Per Dr. Jimenez and primary team, patient may be transferred back to [facility]. Dr. Jimenez recommends getting rid of medications which can precipitate seizures including the Wellbutrin and the Nimmons. This was discussed with psychiatry attending Dr. Siddiqui who accepts the patient back for transfer to [facility]. Prolactin level downtrending Hypertension Norvasc 5 mg PO daily--Changed to 2.5 mg PO starting 03/04/17 to avoid hypotension. Anxiety/depression Management per psychiatry: * Cogentin 1 mg PO BID * Wellbutrin XL 300 mg PO daily--will hold for now * Clonidine 0.1 mg PO Q8H prn * Prozac 60 mg QAM * Neurontin 400 mg PO TID * Atarax 25 mg PO Q6 prn * Nimmons 300 mg PO BID--Dr. Jimenez recommended tapering off of Nimmons, but per Dr. Siddiqui, it should not precipitate further seizures * Imodium 2 mg PO Q6 prn * Nicotine patch * Zofran 4 mg PO Q8 prn * Inderal 20 mg PO Q8 * Seroquel 400 mg PO HS Code Star Likely due to medication. Patient given IV Ativan overnight, the code was called at some point after that. Head CT negative for acute hemorrhage UTI Based on UA and urine cultures, patient had a UTI on admission. Treated with 5 day course of Cipro 500 mg PO BID. Repeat urine cultures grew gram negative rods. We have added another 5 day course of Cipro 500 mg PO BID (10 total doses). Also added Florastor 250 mg PO BID. Do not give Florastor within 2 hours of administrating antibiotics. Medicine team will sign off on this patient. Please re-consult if necessary. Case DW Dr. Chai Martinez PGY-1 <Ronni Yo - Last Filed: 03/07/17 18:18> Objective - Vital Signs/Intake and Output Vital Signs (last 24 hours): Temp Pulse Resp BP Pulse Ox 97.7 F 109 H 20 119/87 93 L 03/07/17 07:58 03/07/17 15:53 03/07/17 07:58 03/07/17 15:53 03/05/17 07:00 - Medications Medications: Current Medications Amlodipine Besylate (Norvasc) 2.5 mg PO DAILY [facility] Last Admin: 03/07/17 10:13 Dose: 2.5 mg Benztropine Mesylate (Cogentin) 1 mg PO BID [facility] Last Admin: 03/07/17 17:11 Dose: 1 mg Bupropion HCl (Wellbutrin Xl) 300 mg PO DAILY [facility] Last Admin: 03/03/17 09:23 Dose: 300 mg Ciprofloxacin (Cipro) 500 mg PO BID [facility] Stop: 03/11/17 18:01 Last Admin: 03/07/17 17:11 Dose: 500 mg Clonidine HCl (Catapres) 0.1 mg PO Q8 PRN PRN Reason: COWS Score More or Equal to 5 Last Admin: 03/03/17 16:30 Dose: 0.1 mg Fluoxetine HCl (Prozac) 60 mg PO QAM [facility] Last Admin: 03/07/17 10:13 Dose: 60 mg Gabapentin (Neurontin) 400 mg PO TID [facility] Last Admin: 03/07/17 17:11 Dose: 400 mg Hydroxyzine HCl (Atarax) 25 mg PO Q6 PRN PRN Reason: Anxiety Last Admin: 03/04/17 17:03 Dose: 25 mg Ibuprofen (Motrin Tab) 400 mg PO Q6 PRN PRN Reason: Pain, Mild (1-3) Last Admin: 03/07/17 15:30 Dose: 400 mg Levetiracetam (Keppra) 500 mg PO Q12 [facility] Last Admin: 03/07/17 10:14 Dose: 500 mg Nimmons Carbonate (Nimmons Carbonate 300mg) 300 mg PO BID [facility] Last Admin: 03/07/17 17:11 Dose: 300 mg Loperamide HCl (Imodium) 2 mg PO Q6H PRN PRN Reason: Diarrhea Last Admin: 02/23/17 10:26 Dose: 2 mg Lorazepam (Ativan) 1 mg PO BID [facility] Stop: 03/08/17 10:01 Last Admin: 03/07/17 17:12 Dose: 1 mg Nicotine (Nicoderm Cq) 1 patch TD DAILY [facility] Last Admin: 03/07/17 10:14 Dose: 1 patch Ondansetron HCl (Zofran Tab) 4 mg PO Q8 PRN PRN Reason: Nausea/Vomiting Propranolol HCl (Inderal) 20 mg PO Q8 [facility] Last Admin: 03/07/17 13:03 Dose: Not Given Quetiapine Fumarate (Seroquel) 400 mg PO HS [facility] Last Admin: 03/06/17 21:40 Dose: 400 mg Saccharomyces Boulardii (Florastor) 250 mg PO BID [facility] - Labs Labs: 03/05/17 08:14 03/05/17 08:14 Attending/Attestation - Attestation I have personally seen and examined this patient.: Yes I have fully participated in the care of the patient.: Yes I have reviewed all pertinent clinical information, including history, physical exam and plan: Yes Notes (Text): 03/07/17 18:18 Patient was seen and examined shortly after the resident. Exam, Assessment and Plan were gone over with the resident. Ronni Yo D.O.
--- NOTE | 2017-03-07 11:22 | PCM.PYCHPN ---
Psychiatric Progress Note - Psychiatric Progress Note Patient seen today, length of contact: 16 mins Patient Chief Complaint: "I'm doing a little better today" Problems Identified/Issues Discussed: The pt is seen, chart reviewed, case discussed with staff. Pt reports that she slept well throughout the night and has had no problems with her medications. She denies SI or any hallucinations. Her mood is "good, definitely feeling better". The pt is compliant with medications and reports no side-effects. Symptoms are improving but needs more time to stabilize. After care discussed, support and psychoeducation given. Pt will attend [facility] upon her discharge. Medication Change: Yes (Taper off Ativan because can not attend [facility] on Ativan ) Medical Record Reviewed: Yes Mental Status Examination - Cognitive Function Orientation: Person, Place, Situation, Time Memory: Intact Attention: WNL Concentration: WNL Association: WNL Fund of Knowledge: WNL - Affect Affect: Constricted, Other (Appropriate) - Speech Speech: Appropriate - Formal Thought Process Formal Thought Process: No Impairment - Suicidal Ideation Suicidal Ideation: No - Homicidal Ideation Homicidal Ideation: No Goal/Treatment Plan - Goal/Treatment Plan Need for Continued Stay: Remain at risks for inpatient hospitalization, Discharge may exacerbated symptoms, Severe functional impairment Progress Toward Problem(s) and Goals/Treatment Plan: Will start to taper off Ativan Ativan 1mg PO - 2 doses ordered Continue medications Support and psychoeducation daily Attend groups and activities daily After care planning: [facility] Estimated Date of D/C: 03/08/17
[2017-03-07] MEDS ORDERED: Saccharomyces Boulardi 250 mg Cap PO SCH (18:00)
--- NOTE | 2017-03-07 18:18 | CP.PCM.PCO ---
Physician Communication Note - Physician Communication Note Physician Communication Note: Please see above
[2017-03-07 18:29] VITALS: BP 131/93; PULSE 106
--- NOTE | 2017-03-08 11:28 | PCM.PYCHDC ---
Mental Status Examination - Mental Status Examination Orientation: Person, Place, Situation, Time Memory: Intact Mood: Neutral Affect: Other (appropriate) Speech: Appropriate Attention: WNL Concentration: WNL Association: WNL Fund of Knowledge: WNL Formal Thought Process: No Impairment Description of patient's judgement and insight: Fair Psychotic Thoughts and Behaviors: None Suicidal Ideation: No Current Homicidal Ideation?: No Discharge Summary - Discharge Note Reason for Hospitalization: depression Opiate use Laboratory Data: reviewed Consultations:: List each consultation separately and include: 1. Reason for request. 2. Findings. 3. Follow-up Summary of Hospital Course include:: 1. Description of specific treatment plan utilized for patients during their course of treatmen. 2. Summarize the time- course for resolution of acute symptoms and/or regressed behaviors. 3. Describe issues identified and worked on during hospitalization. 4. Describe medication utilized. 5. Describe medical problems identified and treated. 6. Reassessment of suicide risk Summary of Hospital Course: Patient is a 46 years old , unemployed, female with history of depression and opiate use was admitted due to withdrawal symptoms of methadone and worsening of depression. Patient reported she was admitted at [facility] for about one month where her methadone was reduced from 65 mg to 15 mg and [facility] with recommendations to go to detox from methadone .patient reported didn' t go for detox. Started feeling stressed and depressed with decreased sleep and decrease appetite and lost 10-15 pounds over 2 weeks. Patient started having suicidal ideations with plan to hang up. Came to hospital for help . Still feels suicidal at times but feels safe in the hospital. Patient has history of one suicidal attempt 5 years ago by overdose on her medications . At that time patient was admitted in the hospital . Patient also feels hopelessness and helplessness , no homicidal ideations but cries at times . Denied any psychotic manic or anxiety symptoms . Patient started using Percocet and OxyContin about 14 years ago. Patient used these drugs for about 8 years before switching to heroin. Started heroin about 6 years ago, was using 10 bags daily, sniffing. Last use about 2 years ago. Patient started methadone maintenance treatment program about 2 years ago and was taking 65 mg of methadone when she was admitted to [facility] Last use of methadone was more than 10 days ago. Patient was smoking About 5 cigarettes daily and is requesting for nicotine patch. History of 2 previous C-sections. Patient was born in [place] has 2 years of college education. 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 Patient quit her job due to depression and an substance use. Patient lives with parents and is supported by parents. She is and has 2 grown up children. Her height is 4 feet 11 inches and weight is 110 pounds. during her stay on the unit, patient was treated with methadone taper and also on other had to psychiatric medication including lithium, gabapentin, when necessary medications and medications for blood pressure. Patient was attending groups and other social activities on the unit. Patient was transferred to telemetry for one day after she had seizure on the unit.patient was transferred back to psych after observation. Patient was continued evaluated by medicine.today patient was stable and ready for discharge. At the time of evaluation and discharge, patient was stable, had no delusions, no auditory or visual hallucinations, no suicidal ideations or homicidal ideatio. Patient was discharged in a stable condition. [facility] to flower buncher or picker the patient. - Diagnosis (1) Major depressive disorder, recurrent severe without psychotic features Status: Acute (2) Long-term current use of methadone for opiate dependence Status: Acute - Final Diagnosis (DSM 5) Condition upon Discharge: STABLE Disposition: REHAB FACILITY/REHAB UNIT Follow-up Treatment Plan: [facility] Prescriptions/Medication Reconciliation: amLODIPine [Norvasc] 2.5 mg PO DAILY #30 tab Benztropine [Cogentin] 1 mg PO BID #60 tab buPROPion XL [Wellbutrin XL] 300 mg PO DAILY #30 t24 FLUoxetine [Prozac] 60 mg PO QAM #30 cap Gabapentin [Neurontin] 400 mg PO TID #90 cap levETIRAcetam [Keppra] 500 mg PO Q12 #60 tab [place] Carbonate [[place] Carbonate 300MG] 300 mg PO BID #60 cap QUEtiapine [SEROquel] 400 mg PO HS #30 tab Saccharomyces Boulardi [Florastor] 250 mg PO BID #60 cap - Smoking Cessation Smoking Cessation Medication prescribed: No - Antipsychotic Medications Pt discharged on 2 or more routine antipsychotic medications: No
== END 2017-03-08 11:00 | disposition home or self-care (01) | DRG 895 ==
LOC: C.ER 12:03 → INTOOBSV 14:43 → C.5E 14:43 → OBSVTOIN 14:43 → C.5S 03-03 11:45 → C.5E 03-05 14:15
PROVIDERS: ADMIT Psychiatry & Neurology Psychiatry; ATTEND Psychiatry & Neurology Psychiatry
PROC: HZ2ZZZZ Detoxification Services for Substance Abuse Treatment (ICD-10-PCS; principal; 2017-02-21)
PROC: HZ52ZZZ Individual Psychotherapy for Substance Abuse Treatment, Cognitive-Behavioral (ICD-10-PCS; 2017-02-21)
PROC: HZ42ZZZ Group Counseling for Substance Abuse Treatment, Cognitive-Behavioral (ICD-10-PCS; 2017-02-21)
PROC: HZ59ZZZ Individual Psychotherapy for Substance Abuse Treatment, Supportive (ICD-10-PCS; 2017-02-21)
PROC: HZ56ZZZ Individual Psychotherapy for Substance Abuse Treatment, Psychoeducation (ICD-10-PCS; 2017-02-21)
PROC: HZ46ZZZ Group Counseling for Substance Abuse Treatment, Psychoeducation (ICD-10-PCS; 2017-02-21)
DX: F11.23 Opioid dependence with withdrawal (principal); F33.2 Major depressive disorder, recurrent severe without psychotic features; R45.851 Suicidal ideations; R56.9 Unspecified convulsions; N39.0 Urinary tract infection, site not specified; I10 Essential (primary) hypertension; F17.210 Nicotine dependence, cigarettes, uncomplicated; F41.9 Anxiety disorder, unspecified